=== PATIENT | female | born 1960 | race African-American/Black ===

== ENCOUNTER 2022-12-24 14:51 | Emergency (ER) | payer BC ==
[2022-12-24 15:29] LABS: Hematocrit 37.3 % (36.0-45.0); Lymphocytes % 40.7 % (15.3-44.8); MCV 92.7 fL (80-100); MPV 7.2 fL (7.6-11.3); RBC Red Blood Cell Count 4.03 M/uL (3.86-4.86)
[2022-12-24 15:30] LABS: Protime INR 1.04
[2022-12-24 15:47] LABS: Albumin 3.9 g/dL (3.4-5.0); Bilirubin Direct 0.1 mg/dL (0-0.2); Bilirubin Total 0.5 mg/dL (0.2-1.0); Magnesium 2.3 mg/dL (1.6-2.4); Potassium 3.7 mmol/L (3.5-5.1); Protein, Total 7.3 g/dL (6.4-8.2); Troponin High Sensitivity 10.9 pg/mL (<58.9)
--- OUTSIDE RECORDS SUMMARY | 2022-12-24 15:53 | XMS REPORT | Clinical Summary ---
:1960 Author Organization [facility] Address [address] [place] [address] Care Team Providers Name Role Phone Aidan Bangura APN Primary Care Provider Allergies Active Allergy Reactions Severity Noted Date Comments Atenolol 07/03/2016 Codeine Nausea And Vomiting 07/03/2016 Metoprolol Rash Low 07/03/2016 Nebivolol Hcl 07/03/2016 Penicillin Itching 07/03/2016 Other reaction( s): hives, RASH Medications Medication Sig Dispensed Refills Start Date End Date Status albuterol sulfate 0 04/29/2018 A ctive (PROVENTIL,VENTOLIN) 2.5 mg/0.5 mL nebulizer solution atorvastatin (LIPITOR) 20 mg tablet 0 12/2021 Active budesonide-formoterol (SYMBICORT) 0 2016 Active 160-4.5 mcg/actuation inhaler carvedilol (COREG) 6.25 mg tablet 0 2017 Active cephalexin (KEFLEX) 500 mg capsule 0 05/30 Active montelukast (SINGULAIR) 10 mg tablet 0 12/2016 Active Active Problems Problem Noted Date Asthma 06/01/2022 Gastro-esophageal reflux disease without esophagitis 0 06/01/2022 Seasonal allergic rhinitis 06/01/2022 Essential (primary) hypertension 10/28/2014 Chronic kidney disease 10/28/2002 Encounters Date Type Specialty Care Team Description 12/03/2022 Telephone Breast Undiagnosed Rere Sharma, TACO 08/22/2022 Telephone Breast Undiagnosed Aleena Amezquita RN 06/01/2022 Clinical Support Breast Undiagnosed Aidan Bangura, Prisca Galan NP 06/01/2022 Hospital Encounter Radiology Aidan Bangura Lump i n right breast U, BAG CHECKER 06/01/2022 Hospital Encounter Radiology Aidan Bangura Lump i n right breast U, BAG CHECKER 06/01/2022 Office Visit Breast Undiagnosed Aidan Bangura Intrad uctal papilloma of right breast (Primary Dx); U, BAG CHECKER Unspecified lump in unspecified breast; Gabe, Prisca Other abnormal and inconclusive findings on diagnostic imaging of breast JENA Prescott 06/01/2022 NPR Patient Access Services 06/01/2022 Travel 05/25/2022 Lab Requisition Rodo Alas MD Nart, MD Kelton 05/23/2022 Ancillary Procedure Radiology Aidan Bangura Cance r U, BAG CHECKER 05/23/2022 Ancillary Procedure Radiology Aidan Bangura Cance r U, BAG CHECKER 05/23/2022 Ancillary Procedure Radiology Aidan Bangura Cance r U, BAG CHECKER 05/23/2022 Ancillary Procedure Radiology Aidan Bangura Cance r U, BAG CHECKER 05/17/2022 Orders Only Cancer Prevention Aidan Bangura Lump in right breast U, BAG CHECKER (Primary Dx) after 12/24/2021 Immunizations Name Administration Dates Next Due Moderna SARS-CoV-2 Vaccination 02/07/2021, 01/05/2021 Surgical History Surgery Date Site/Laterality Comments HYSTERECTOMY 10/28/1995 - 10/27/1996 TONSILLECTOMY 10/28/1979 - 10/27/1980 TONSILLECTOMY 10/28/2017 - 10/27/2018 Medical History Medical History Date Comments Essential (primary) hypertension 2014 Chronic kidney disease 2002 Gastro-esophageal reflux disease without esophagitis Asthma Seasonal allergic rhinitis 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 Family History Medical History Relation Name Comments Colon cancer Maternal Uncle Relation Name Status Comments Maternal Uncle Social History Tobacco Use Types Packs/Day Years Used Date Smoking Tobacco: Never Smokeless Tobacco: Never Tobacco Cessation: Counseling Given: Yes Alcohol Use Standard Drinks/Week Comments Yes 0 (1 standard drink = 0.6 oz pure alcoho l) occassionally Sex Assigned at Date Recorded Not on file Job Start Date Occupation Industry Not on file Not on file Not on file Obstetrics History Para Term AB IAB SAB Ectopic Multiple Living Live Births 9 5 4 4 5 Date Outcome GA Total Labor/2nd/3rd Weight Sex Delivery Anes PTL Lisa A 1 A5 Name Clin Labor Para Para Para Para Para SAB SAB SAB SAB Comments Menarche: 16 Parity: 18 OBC: 3-4 years Hormonal Therapy: Premari n, Estradiol pt states on and off for 25 yrs. Last Pap: (OS) remote Abnormal Pap: None Last Josias: (OS) 02/28/2022 Last Colon: (O S) 6 years ago Breast Bx: 1 Last Filed Vital Signs Vital Sign Reading Time Taken Comments Blood Pressure 140/75 06/01/2022 11:13 AM CDT Pulse 83 06/01/2022 11:13 AM CDT Temperature - - Respiratory Rate 16 06/01/2022 11:13 AM CDT Oxygen Saturation - - Inhaled Oxygen Concentration - - Weight 70 kg (154 lb 5.2 oz) 06/01/2022 11:13 AM CDT Height 155 cm (5' 1.02") 06/01/2022 11:13 AM CDT Body Mass Index 29.14 06/01/2022 11:13 AM CDT Plan of Treatment Date Type Specialty Care Team Description 02/06/2023 Appointment Radiology Prisca Bernal, ELECT[employer]IAN [employer]IEF [address] [place], [place] [address] (Wo rk) 02/06/2023 Office Visit Cancer Prevention Emerita Jones PA [address] [place], [place] [address] (Wo rk) Health Maintenance Due Date Last Done Comments COVID-19 Vaccination (3 - Booster for 04/04/2021 02/07/2021 , 01/05/2021 Moderna series) Procedures Procedure Name Priority Date/Time Associated Comments Diagnosis US CHEST Routine 06/01/2022 1:57 PM Lump in right Results for this CDT breast procedure are i n the results section. US BREAST COMPLETE Routine 06/01/2022 1:57 PM Lump in right Re sults for this BILATERAL CDT breast procedure are i n the results section. MAMMO DIGITAL Routine 06/01/2022 12:27 Lump in right Results f or this DIAGNOSTIC BILATERAL W PM CDT breast proce dure are in [facility] the results section. [facility] MAMMO BREAST BIOPSY Routine 03/08/2022 1:55 PM Cancer Results for this CDT procedure are i n the results section. [facility] US BREAST BIOPSY Routine 03/08/2022 1:55 PM Cancer R esults for this CDT procedure are i n the results section. PATHOLOGY OUTSIDE Routine 03/08/2022 Results fo r this INTERPRETATION procedure are in the results section. [facility] MAMMO BILATERAL Routine 02/28/2022 1:54 PM Cancer Re sults for this CDT procedure are i n the results section. [facility] US BREAST Routine 02/28/2022 1:54 PM Cancer Results for this CDT procedure are i n the results section. after 12/24/2021 Results US Chest for Breast Ultrasound (Add-on Only) (06/01/2022 1:57 PM CDT) Anatomical Region Laterality Modality Chest Ultrasound Specimen (Source) Anatomical Collection Method Collection Time Re ceived Time Location / / Volume Laterality 06/01/2022 2:16 PM CDT Impressions 06/01/2022 2:24 PM CDT Multiple similar appearing intraductal m asses throughout both breasts suggestive of underlying papillomatosis. Six-month follow-up ultrasound is recommended to ensure stability. ACR BI-RADS Category: 3. Probably benign . Narrative 06/01/2022 2:24 PM CDT FULL RESULT: Examination: US BREAST COMPLETE BILATERA L, US CHEST 06/01/2022 1:57 PM Clinical History: 62-year-old woman with recent biopsy of a palpable mass in the right breast with final pathology results demonstrating a papilloma. Patient also with bilateral similar appearing masses in both breasts on mammogram. Indication: Breast mass. Abnormal mammog vilma. Comparison: Same day mammogram. Outside ultrasound examinations from 02/28/2022 and 03/08/2022. Technique: Real-time sonographic imaging of both breasts (including all 4 quadrants and retroareolar region) was performed. Imaging was performed of the axilla (levels I, II, and III). Ultrasound imagin g of the chest/mediastinum was performed to evaluate the internal mammary lymph nodes. Images were obtained in multiple scanning planes. Findings: Left breast: Multiple similar appearing intraductal masses are identified throughout the breast with the largest present at the 5 o'clock/periareolar region, 2 cm from the nipple, measuring 0.7 x 0.5 x 0.2 cm. Scattered fibrocystic type bro es are also present. The intraductal masses and fibrocystic type changes correspond to the obscured masses identified mammographically. Left regional shaila basins: No suspiciou s axillary (levels 1-3) or internal mammary lymph nodes are present. No Right breast: Multiple similar appearing intraductal masses are identified throughout the breast with the largest present in the retroareolar region measuring 1 x 0.7 x 0.4 cm. This mass has an associat ed biopsy clip and corresponds to the ou tside performed biopsy demonstrating a papilloma. Scattered fibrocystic type changes are also present. The intraductal masses and fibrocystic type changes corresp ond to the obscured masses identified ma mmographically. Right regional shaila basins: No suspicio us axillary (levels 1-3) or internal mammary lymph nodes are present. Procedure Note Marisela Cuba MD - 06/01/2022 FULL RESULT: Examination: US BREAST COMPLETE BILATERA L, US CHEST 06/01/2022 1:57 PM Clinical History: 62-year-old woman with recent biopsy of a palpable mass in the right breast with final pathology results demonstrating a papilloma. Patient also with bilateral similar appearing masses in both breasts on mammogram. Indication: Breast mass. Abnormal mammog vilma. Comparison: Same day mammogram. Outside ultrasound examinations from 02/28/2022 and 03/08/2022. Technique: Real-time sonographic imaging of both breasts (including all 4 quadrants and retroareolar region) was performed. Imaging was performed of the axilla (levels I, II, and III). Ultrasound imaging of the chest/mediastinum was performed to evalu ate the internal mammary lymph nodes. Images were obtained in multiple scanning planes. Findings: Left breast: Multiple similar appearing intraductal masses are identified throughout the breast with the largest present at the 5 o'clock/periareolar region, 2 cm from the nipple, measuring 0.7 x 0.5 x 0.2 cm. Scattered fibrocystic type bro es are also present. The intraductal masses and fibrocystic type changes correspond to the obscured masses identified mammographically. Left regional shaila basins: No suspiciou s axillary (levels 1-3) or internal mammary lymph nodes are present. No Right breast: Multiple similar appearing intraductal masses are identified throughout the breast with the largest present in the retroareolar region measuring 1 x 0.7 x 0.4 cm. This mass has an associated biopsy clip and corresponds to the outside performed bio psy demonstrating a papilloma. Scattered fibrocystic type changes are also present. The intraductal masses and fibrocystic type changes correspond to the obscured masses identified mammographically. Right regional shaila basins: No suspicio us axillary (levels 1-3) or internal mammary lymph nodes are present. IMPRESSION: Multiple similar appearing intraductal m asses throughout both breasts suggestive of underlying papillomatosis. Six-month follow-up ultrasound is recommended to ensure stability. ACR BI-RADS Category: 3. Probably benign . Aidan Bangura APN IMG US ORDERABLES US Breast Complete Bilateral (06/01/2022 1:57 PM CDT) Anatomical Region Laterality Modality Breast Bilateral Ultrasound Specimen (Source) Anatomical Collection Method Collection Time Re ceived Time Location / / Volume Laterality 06/01/2022 2:16 PM CDT Impressions 06/01/2022 2:24 PM CDT Multiple similar appearing intraductal m asses throughout both breasts suggestive of underlying papillomatosis. Six-month follow-up ultrasound is recommended to ensure stability. ACR BI-RADS Category: 3. Probably benign . Narrative 06/01/2022 2:24 PM CDT FULL RESULT: Examination: US BREAST COMPLETE BILATERA L, US CHEST 06/01/2022 1:57 PM Clinical History: 62-year-old woman with recent biopsy of a palpable mass in the right breast with final pathology results demonstrating a papilloma. Patient also with bilateral similar appearing masses in both breasts on mammogram. Indication: Breast mass. Abnormal mammog vilma. Comparison: Same day mammogram. Outside ultrasound examinations from 02/28/2022 and 03/08/2022. Technique: Real-time sonographic imaging of both breasts (including all 4 quadrants and retroareolar region) was performed. Imaging was performed of the axilla (levels I, II, and III). Ultrasound imagin g of the chest/mediastinum was performed to evaluate the internal mammary lymph nodes. Images were obtained in multiple scanning planes. Findings: Left breast: Multiple similar appearing intraductal masses are identified throughout the breast with the largest present at the 5 o'clock/periareolar region, 2 cm from the nipple, measuring 0.7 x 0.5 x 0.2 cm. Scattered fibrocystic type bro es are also present. The intraductal masses and fibrocystic type changes correspond to the obscured masses identified mammographically. Left regional shaila basins: No suspiciou s axillary (levels 1-3) or internal mammary lymph nodes are present. No Right breast: Multiple similar appearing intraductal masses are identified throughout the breast with the largest present in the retroareolar region measuring 1 x 0.7 x 0.4 cm. This mass has an associat ed biopsy clip and corresponds to the ou tside performed biopsy demonstrating a papilloma. Scattered fibrocystic type changes are also present. The intraductal masses and fibrocystic type changes corresp ond to the obscured masses identified ma mmographically. Right regional shaila basins: No suspicio us axillary (levels 1-3) or internal mammary lymph nodes are present. Procedure Note Marisela Cuba MD - 06/01/2022 FULL RESULT: Examination: US BREAST COMPLETE BILATERA L, US CHEST 06/01/2022 1:57 PM Clinical History: 62-year-old woman with recent biopsy of a palpable mass in the right breast with final pathology results demonstrating a papilloma. Patient also with bilateral similar appearing masses in both breasts on mammogram. Indication: Breast mass. Abnormal mammog vilma. Comparison: Same day mammogram. Outside ultrasound examinations from 02/28/2022 and 03/08/2022. Technique: Real-time sonographic imaging of both breasts (including all 4 quadrants and retroareolar region) was performed. Imaging was performed of the axilla (levels I, II, and III). Ultrasound imaging of the chest/mediastinum was performed to evalu ate the internal mammary lymph nodes. Images were obtained in multiple scanning planes. Findings: Left breast: Multiple similar appearing intraductal masses are identified throughout the breast with the largest present at the 5 o'clock/periareolar region, 2 cm from the nipple, measuring 0.7 x 0.5 x 0.2 cm. Scattered fibrocystic type bro es are also present. The intraductal masses and fibrocystic type changes correspond to the obscured masses identified mammographically. Left regional shaila basins: No suspiciou s axillary (levels 1-3) or internal mammary lymph nodes are present. No Right breast: Multiple similar appearing intraductal masses are identified throughout the breast with the largest present in the retroareolar region measuring 1 x 0.7 x 0.4 cm. This mass has an associated biopsy clip and corresponds to the outside performed bio psy demonstrating a papilloma. Scattered fibrocystic type changes are also present. The intraductal masses and fibrocystic type changes correspond to the obscured masses identified mammographically. Right regional shaila basins: No suspicio us axillary (levels 1-3) or internal mammary lymph nodes are present. IMPRESSION: Multiple similar appearing intraductal m asses throughout both breasts suggestive of underlying papillomatosis. Six-month follow-up ultrasound is recommended to ensure stability. ACR BI-RADS Category: 3. Probably benign . Aidan Bangura APN IMG US ORDERABLES (ABNORMAL) Mammography Digital Diagnostic Bilateral with Jackson (06/01/2022 12:27 PM CDT) Anatomical Region Laterality Modality Breast Bilateral Mammography Specimen (Source) Anatomical Collection Method Collection Time Re ceived Time Location / / Volume Laterality 06/01/2022 2:14 PM CDT Impressions 06/01/2022 2:14 PM CDT 1: Focal asymmetry in the retroareolar region of the right breast is benign. 2: Masses in both breasts require natanael tional imaging evaluation. An ultrasound exam is recommended. BI-RADS Category 0: Incomplete: Needs Additional Imaging Susanna luation Narrative 06/01/2022 2:14 PM CDT CLINICAL INDICATION: Patient is a 62 year old female and is s een for breast lump MAMMO DIGITAL DIAGNOSTIC BILATERAL W ODALYS O Digital Mammogram evaluated with Compute r Aided Detection (CAD). COMPARISON: The present examination has been compare d to a prior imaging study performed at an outside location on 02/28/2022. FINDINGS: There are scattered areas of fibroglandu lar density. 1: There is a focal asymmetry measurin g 0.8 centimeters with associated post biopsy clip in the retroareolar region o f the right breast. Focal asymmetry correlates to the palpable finding in th e right breast. Patient is status post recent outside performed biopsy with apolinar michaud pathology results demonstrating an intraductal papilloma with usual ductal hyperplasia and stromal microcalcifications. 2: There are multiple similar obscured masses in both breasts. Tomosynthesis performed in CC and MLO pr ojections. Procedure Note Marisela Cuba MD - 06/01/2022 CLINICAL INDICATION: Patient is a 62 year old female and is s een for breast lump MAMMO DIGITAL DIAGNOSTIC BILATERAL W ODALYS O Digital Mammogram evaluated with Compute r Aided Detection (CAD). COMPARISON: The present examination has been compare d to a prior imaging study performed at an outside location on 02/28/2022. FINDINGS: There are scattered areas of fibroglandu lar density. 1: There is a focal asymmetry measuring 0.8 centimeters with associated post biopsy clip in the retroareolar region o f the right breast. Focal asymmetry correlates to the palpable finding in th e right breast. Patient is status post recent outside performed biopsy with fin al pathology results demonstrating an intraductal papilloma with usual ductal hyperplasia and stromal microcalcifications. 2: There are multiple similar obscured m asses in both breasts. Tomosynthesis performed in CC and MLO pr ojections. IMPRESSION: 1: Focal asymmetry in the retroareolar r egion of the right breast is benign. 2: Masses in both breasts require additi onal imaging evaluation. An ultrasound exam is recommended. BI-RADS Category 0: Incomplete: Needs Additional Imaging Ssuanna luation Aidan Bangura APN [place] MAMMOGRAPHY ORDERABLES [facility] Mammo Breast Biopsy (03/08/2022 1:55 PM CDT) Specimen (Source) Anatomical Location Collection Method / Collectio n Time Received Time / Laterality Volume Narrative [facility] - 05/23/2022 1:55 PM CDT Study acquired at another institution. For comparison only. No MD Perry originated interpretation requested or a vailable. Aidan Bangura APN [facility] OUTSIDE IMAGE ORDERABLES Performing Organization Address City/State/ZIP Code Phon e Number [facility] US Breast Biopsy (03/08/2022 1:55 PM CDT) Specimen (Source) Anatomical Location Collection Method / Collectio n Time Received Time / Laterality Volume Narrative [facility] - 05/23/2022 1:55 PM CDT Study acquired at another institution. For comparison only. No MD Perry originated interpretation requested or a vailable. Aidan Bangura EDWIGE IMG OUTSIDE IMAGE ORDERABLES Performing Organization Address City/State/ZIP Code Phon e Number [facility] Pathology Outside Interpretation (03/08/2022) Component Value Ref Test Analysis Performed Pathologis t Range Method Time At Signature Materials Accession#, Stained, Block, Unstained Collected Received 05/28/2022 [facility] Received A. [id number], 6 SS, 0 BLOCKS, 0 USS 03/08/2022 05/25/2022 3:08 PM CDT Diagnosis Outside material ([id number]) designated as follows: 05/28/2022 [facility] Electronically 3:08 PM signed by Rea Right breast, 3:00, 1 cm fro m nipple, ultrasound guided core biopsy (1.A, H&E levels 2, 5, 6, and immunostains): CDT MD Reina on 05/28/2022 a t 3:08 Sclerosing intraductal papil kenna with usual ductal hyperplasia and stromal microcalcifications (see comment). PM Comment On submitted outside 05/28/2022 [facility] ABS slides, immunostains 3:08 PM with myoepithelial CDT markers p63 and smooth muscle myosin are present around the intraductal papilloma and in the fibrovascular cores of the papillae. Disclaimer "Some tests reported 05/28/2022 [facility] here may have been 3:08 PM developed and CDT performance characteristics determined by [facility] Medicine. These tests have not been specifically cleared or approved by the U.S. Food and Drug Administration. If applicable, controls were reviewed and showed appropriate reactivity." Specimen (Source) Anatomical Collection Method Collection Time Re ceived Time Location / / Volume Laterality Tissue 03/08/2022 05/25/2022 4:11 PM CDT Kelton Alberto MD LAB PATHOLOGY ORDERABLES Performing Organization Address City/State/ZIP Code Phon e Number [facility] [place] [address] [address] [facility] Mammo (02/28/2022 1:54 PM CDT) Specimen (Source) Anatomical Location Collection Method / Collectio n Time Received Time / Laterality Volume Narrative [facility] - 05/23/2022 1:54 PM CDT Study acquired at another institution. For comparison only. No MD Perry originated interpretation requested or a vailable. Aidan Bangura BAG CHECKER IMG OUTSIDE IMAGE ORDERABLES Performing Organization Address City/State/ZIP Code Phon e Number [facility] US Breast (02/28/2022 1:54 PM CDT) Specimen (Source) Anatomical Location Collection Method / Collectio n Time Received Time / Laterality Volume Narrative [facility] - 05/23/2022 1:55 PM CDT Study acquired at another institution. For comparison only. No MD Perry originated interpretation requested or a vailable. Aidan Bangura BAG CHECKER IMG OUTSIDE IMAGE ORDERABLES Performing Organization Address City/State/ZIP Code Phon e Number [facility] after 12/24/2021 Insurance Payer Benefit Plan / Subscriber ID Effective Dates Phone Addre ss Type Group [employer] POS [id number] 2020-Present [id number] [place] [address] Care Teams Water Analyst Relationship Specialty Start Date End Date Aidan Bangura APN PCP - General Cancer Prevention 05/17/[address] [place] [id number]
--- OUTSIDE RECORDS SUMMARY | 2022-12-24 15:54 | XMS REPORT | Continuity of Care Document ---
:1960 Author Organization [facility] t Address [address] [place] [address] [place] [id number] Care Team Providers Name Role Phone [phone] Primary Care Physician Unavailable SYSTEM, PROVIDER NOT IN Attending Clinician Unavailable VLADIMIR BURT/ANURADHA Attending Clinician Unavailable ALLYSSA YOUNG Attending Clinician Unavailable DAMARIS PARHAM Attending Clinician Unavailable YEYO BREWSTER Attending Clinician Unavailable Rree Sharma RN Attending Clinician Unavailable ANITA ROD Attending Clinician Unavailable Alirio ESPAÑA, Aleena Attending Clinician SURAJ ABDULLAHI Attending Clinician Unavailable Suraj Abdullahi APN Attending Clinician Gabe BELLA, Prisca Prescott Attending Clinician Rodo Alas MD Attending Clinician Kelton Alberto MD Attending Clinician JOHNATHAN RAMIREZ APN Attending Clinician Unavailable HENRRY PÉREZ Attending Clinician Unavailable Pa Gallegos Attending Clinician Unavailable VLADIMIR BURT/ANURADHA Admitting Clinician Unavailable ALLYSSA YOUNG Admitting Clinician Unavailable DAMARIS PARHAM Admitting Clinician Unavailable YEYO BREWSTER Admitting Clinician Unavailable EHDAIE, SASSAN DIA Admitting Clinician Unavailable Payers Payer Name Policy Type Policy Number Effective Date Expiration Date S claudia 8 B [id number] 30 C [id number] 4 C [id number] HMO/QPOS/SELECT - [id number] [employer]ET[employer] PPO/EPO - BCBS [id number] CHOICE/CHOICE [id number] PLUS/OPTIONS [facility] Problems Condition Condition Condition Status Onset Resolution Last Treating Co mments Source Name Details Category Date Date Treatment Clinician Date Asthma Asthma Disease Active Univers 8-05 ity of 00:00: [place] 00 MD Beatrice patton [facility] Gastro-eso Gastro-eso Disease Active U nivers phageal phageal 06-01 ity of reflux reflux 00:00: [place] disease disease 00 without without [facility] esophagiti esophagiti n [facility] Seasonal Seasonal Disease Active Unive rs allergic allergic 06-01 ity of rhinitis rhinitis 00:00: [place] 00 MD Beatrice patton [facility] Essential Essential Disease Active Uni vers (primary) (primary) 10-28 [place] of hypertens[place] Beatrice patton [facility] Atopic Atopic Disease Active [facility] dermatitis dermatitis 9-17 Co llege 00:00: of 00 Medicin e Spongiotic Spongiotic Disease Active [facility] dermatitis dermatitis 8-15 Co llege 00:00: of 00 Medicin e Chronic Chronic Disease Active Univers kidney kidney 10-28 ity of disease disease 00:00: [place] 00 MD Beatrice patton [facility] Problem Condition [facility] Allergies, Adverse Reactions, Alerts Allergy Allergy Status Severity Reaction(s) Onset Inactive Treating Comm ents Source Name Type Date Date Clinician Ciprofana maría Propensi Active Other (See Makes her [facility] xacin ty to Comments) 11-22 legs hurt [place] adverse 00:00: of reaction 00 Medicin s to e drug PENICILL Drug Active U hives 2018-10 [facility] [place] Allergy 12-07 Hospita 07:40: l 31 ([place]) ATENOLOL DRUG Active INGREDI 07-03 Anderso 00:00: n 00 CODEINE DRUG Active NandV MD INGREDI 07-03 Anderso 00:00: n 00 NEBIVOLO DRUG Active 2015-0 MD L HCL INGREDI 07-03 Anderso 00:00: n 00 PENICILL DRUG Active Itching 2015-0 MD IN INGREDI 07-03 Anderso 00:00: n 00 METOPROL DRUG Active Low Rash 2016-0 MD OL INGREDI 07-03 Anderso 00:00: n 00 ATENOLOL DRUG Active 2015-0 MD INGREDI 07-03 Anderso 00:00: n 00 CODEINE DRUG Active NandV 2015-0 MD INGREDI 07-03 Anderso 00:00: n 00 NEBIVOLO DRUG Active 2015-0 MD L HCL INGREDI 07-03 Anderso 00:00: n 00 PENICILL DRUG Active Itching 2015-0 MD IN INGREDI 07-03 Ando 00:00: n 00 METOPROL DRUG Active Low Rash 2015-0 MD OL INGREDI 07-03 Ando 00:00: n 00 nebivolo Propensi Active Unknown PANTERA TU l HCl ty to 07-03 S adverse 00:00: Health reaction 00 s Penicill Propensi Active Unknown PANTERA TU in ty to 07-03 S adverse 00:00: Health reaction 00 s Atenolol Allergy Active Unknown MICHAEL U to 07-03 S substanc 00:00: Health e 00 Metoprol Allergy Active Unknown 0 MICHAEL U ol to 07-03 S substanc 00:00: Health e 00 Atenolol Drug Active 2015-0 Univers Allergy 07-03 ity of 00:00: [place] 00 MD [facility] Codeine Propensi Active Nausea And 2015- Uni vers ty to Vomiting 07-03 ity of adverse 00:00: [place] reaction 00 MD [facility] Metoprol Drug Active Rash Univers ol Allergy 07-03 ity of 00:00: [place] 00 MD [facility] Nebivolo Propensi Active Univer s l Hcl ty to 07-03 ity of adverse 00:00: [place] reaction 00 MD [facility] Penicill Drug Active Itching Other Univers in Allergy 07-03 reaction( ity of 00:00: s): [place] 00 MD mauricio RASH [facility] ATENOLOL DRUG Active 0 MD INGREDI 07-03 Anderso 00:00: n 00 CODEINE DRUG Active NandV 2016-0 MD INGREDI 07-03 Anderso 00:00: n 00 NEBIVOLO DRUG Active 2016-0 MD L HCL INGREDI 07-03 Anderso 00:00: n 00 PENICILL DRUG Active Itching 2016-0 MD IN INGREDI 07-03 Anderso 00:00: n 00 METOPROL DRUG Active Low Rash 2016-0 MD OL INGREDI 07-03 Anderso 00:00: n 00 ATENOLOL DRUG Active 2016-0 MD INGREDI 07-03 Anderso 00:00: n 00 CODEINE DRUG Active NandV 2016-0 MD INGREDI 07-03 Anderso 00:00: n 00 NEBIVOLO DRUG Active 2016-0 MD L HCL INGREDI 07-03 Ando 00:00: n 00 PENICILL DRUG Active Itching 2015-0 MD IN INGREDI 07-03 Anderso 00:00: n 00 METOPROL DRUG Active Low Rash 2016-0 MD OL INGREDI 07-03 Anderso 00:00: n 00 ATENOLOL DRUG Active 2016-0 MD INGREDI 07-03 Anderso 00:00: n 00 CODEINE DRUG Active NandV 2016-0 MD INGREDI 07-03 Anderso 00:00: n 00 NEBIVOLO DRUG Active 2016-0 MD L HCL INGREDI 07-03 Ando 00:00: n 00 PENICILL DRUG Active Itching 2016-0 MD IN INGREDI 07-03 Anderso 00:00: n 00 METOPROL DRUG Active Low Rash 2016-0 MD OL INGREDI 07-03 Anderso 00:00: n 00 ATENOLOL DRUG Active 2016-0 MD INGREDI 07-03 Anderso 00:00: n 00 CODEINE DRUG Active NandV 2016-0 MD INGREDI 07-03 Anderso 00:00: n 00 NEBIVOLO DRUG Active 2016-0 MD L HCL INGREDI 07-03 Anderso 00:00: n 00 PENICILL DRUG Active Itching 2016-0 MD IN INGREDI 07-03 Anderso 00:00: n 00 METOPROL DRUG Active Low Rash 2016-0 MD OL INGREDI 07-03 Anderso 00:00: n 00 ATENOLOL DRUG Active 2016-0 MD INGREDI 07-03 Anderso 00:00: n 00 CODEINE DRUG Active NandV 2016-0 MD INGREDI 07-03 Anderso 00:00: n 00 NEBIVOLO DRUG Active 2016-0 MD L HCL INGREDI 07-03 Anderso 00:00: n 00 PENICILL DRUG Active Itching 2016-0 MD IN INGREDI 07-03 Anderso 00:00: n 00 METOPROL DRUG Active Low Rash 2016-0 MD OL INGREDI 07-03 Anderso 00:00: n 00 ATENOLOL DRUG Active 2016-0 MD INGREDI 07-03 Anderso 00:00: n 00 CODEINE DRUG Active NandV 2016-0 MD INGREDI 07-03 Anderso 00:00: n 00 NEBIVOLO DRUG Active 2016-0 MD L HCL INGREDI 07-03 Ando 00:00: n 00 PENICILL DRUG Active Itching 2016-0 MD IN INGREDI 07-03 Anderso 00:00: n 00 METOPROL DRUG Active Low Rash 2016-0 MD OL INGREDI 07-03 Ando 00:00: n 00 ATENOLOL DRUG Active 2016-0 MD INGREDI 07-03 Anderso 00:00: n 00 CODEINE DRUG Active NandV 2016-0 MD INGREDI 07-03 Anderso 00:00: n 00 NEBIVOLO DRUG Active 2016-0 MD L HCL INGREDI 07-03 Ando 00:00: n 00 PENICILL DRUG Active Itching 2016-0 MD IN INGREDI 07-03 Anderso 00:00: n 00 METOPROL DRUG Active Low Rash 2016-0 MD OL INGREDI 07-03 Anderso 00:00: n 00 ATENOLOL DRUG Active 2016-0 MD INGREDI 07-03 Anderso 00:00: n 00 CODEINE DRUG Active NandV 2016-0 MD INGREDI 07-03 Anderso 00:00: n 00 NEBIVOLO DRUG Active 2016-0 MD L HCL INGREDI 07-03 Anderso 00:00: n 00 PENICILL DRUG Active Itching 2016-0 MD IN INGREDI 07-03 Anderso 00:00: n 00 METOPROL DRUG Active Low Rash 2016-0 MD OL INGREDI 07-03 Anderso 00:00: n 00 ATENOLOL DRUG Active 2016-0 MD INGREDI 07-03 Anderso 00:00: n 00 CODEINE DRUG Active NandV 2016-0 MD INGREDI 07-03 Anderso 00:00: n 00 NEBIVOLO DRUG Active MD L HCL INGREDI 07-03 Anderso 00:00: n 00 PENICILL DRUG Active Itching MD IN INGREDI 07-03 Anderso 00:00: n 00 METOPROL DRUG Active Low Rash MD OL INGREDI 07-03 Anderso 00:00: n 00 ATENOLOL DRUG Active MD INGREDI 07-03 Anderso 00:00: n 00 CODEINE DRUG Active NandV MD INGREDI 07-03 Anderso 00:00: n 00 NEBIVOLO DRUG Active MD L HCL INGREDI 07-03 Anderso 00:00: n 00 PENICILL DRUG Active Itching MD IN INGREDI 07-03 Anderso 00:00: n 00 METOPROL DRUG Active Low Rash MD OL INGREDI 07-03 Anderso 00:00: n 00 Penicill Propensi Active [facility] ins ty to 8-15 College adverse 00:00: of reaction 00 Medicin s to e drug Family History Family Member Diagnosis Comments Start Date Stop Date Source Maternal uncle Colon cancer [facility] [place] MD [facility] Social History Social Habit Start Date Stop Date Quantity Comments Source Alcohol intake 2022-06-01 2022-06-01 Current drinker of Un iversity of 00:00:00 00:00:00 alcohol (finding) [facility] Alcohol Comment 2022-06-01 2022-06-01 occassionally Univer sity of 00:00:00 00:00:00 [facility] Tobacco use and 2017-03-13 2017-03-13 Smokeless tobacco [facility] College of exposure 00:00:00 00:00:00 non-user Medicine Sex [birth year] Universit y of 00:00:00 00:00:00 Raysa foster [facility] Smoking Status Start Date Stop Date Source Never smoked tobacco [facility] Pushpa ege of Medicine Medications Ordered Filled Start Stop Current Ordering Indication Dosage Frequency Signature Comments Components Source Medication Medication Date Date Medication? Clinician (SIG) Name Name clobetasol Yes [id number] Apply to [facility] (TEMOVATE) 1- affected Colle ge 0.05 % 00:00: area twice of ointment 00 a day as Medicin needed for e up to 6 weeks. Avoid use on face, axilla, groin. atorvastati Yes Teena galarza n (LIPITOR) 8 ity of 20 mg 00:00: [place] tablet 00 MD Barron [facility] cephalexin Yes Univers (KEFLEX) 05-30 ity of 500 mg 00:00: [place] [facility] Meclizine 2018-10 No 25mg Three CHRISTU Hcl 1-22 Times A S (Antivert) 16:11: Day Health 25 Mg TAB 00 Meclizine 2018-10 No 25mg Three CHRISTU Hcl 1-22 Times A S (Antivert) 16:11: Day Health 25 Mg TAB 00 predniSONE 2017-10 Yes [id number] Take 4 [facility] (DELTASONE) 1-07 tabs x 5 Pushpa ege 10 MG 00:00: days, 3 of tablet 00 tabs x 5 Medicin days, 2 e tabs x 5 days, then 1 tab x 5 days QAM PO. tacrolimus Yes [id number] Apply [facility] (PROTOPIC) 7-30 2x/day; Colleg e 0.1 % 00:00: use sun of ointment 00 protection Medic in e albuterol Yes Univers sulfate 7 ity of (PROVENTIL, 00:00: [place] VENTOLIN) 00 2.5 mg/0.5 Anderso mL n nebulizer [facility] carvedilol Yes Univers (COREG) 3 ity of 6.25 mg 00:00: [place] tablet 00 MD Beatrice patton [facility] budesonide- Yes Teena galarza formoterol 04-29 ity of (SYMBICORT) 00:00: [place] 160-4.5 00 MD matthews/abel Barron on inhaler [facility] Desoximetas 2022- No [id number] 1{appli Apply 1 [facility] one 0.25 % 5-17 11-22 cation} applicatio College OINT 00:00: 00:00 n of 00 :00 topically Medicin two times e daily. montelukast Yes Univer s (SINGULAIR) 5-03 ity of 10 mg 00:00: [place] tablet 00 MD [facility] predniSONE Yes 3 tabs by Javier guajardo (DELTASONE) 07-14 mouth for Col lege 20 MG 00:00: 5 days/ of tablet 00 then 2 Medicin tabs by e mouth for 5 days/ then 1 tab by mouth for 5 days. doxepin Yes 25mg Take 1 Cap [facility] or (SINEQUAN) 07-14 by mouth Colle ge 25 MG 00:00: nightly. of capsule 00 Medicin e Halobetasol 2022- No [facility] 07-14 affected College &Lactic Ac 00:00: 00:00 area twice of Cr 00 :00 a day Medicin (ULTRAVATE e X, OINTMENT,) 0.05 & 10 % KIT triamcinolo 2022- No Apply to [place] 07-14 affected College (KENALOG) 00:00: 00:00 area 2 of 0.1 % 00 :00 times Medicin ointment daily. e Avoid face/groin /axillae Halobetasol 2011-10- No [id number] Apply to [facility] 12-24 affected College &Lactic Ac 00:00: 00:00 areas of Cr 00 :00 twice Medicin (ULTRAVATE daily e X, OINTMENT,) 0.05 & 10 % KIT cycloSPORIN Yes 100mg Take 1 Cap [facility] E 8-15 by mouth 3 College (SANDIMMUNE 00:00: times of ) 100 MG 00 daily. Medicin capsule e Aspirin No 81mg Daily for CHRISTU (Aspirin Supplement S Chewable) Health 81 Mg CHEW Carvedilol No 3.125mg Daily PANTERA TU (Coreg) S 3.125 Mg Health TAB Clonazepam No .5mg Daily for CHRI JS (Klonopin) Anxiety/Ag S 0.5 Mg TAB itation Health Dexlansopra No 60mg Daily as CHRI JS zole needed for S (Dexilant) Reflux Health 60 Mg CPDR Hctz/Lisino No 1 Daily for CHR ISTU pril Hypertensi S (Zestoretic on Health 20-12.5) 1 Tab TABLET Metoclopram No 5mg Twice CHRISTU ford Hcl Daily S (Reglan) 5 Before Health Mg TAB Meals Aspirin No 81mg Daily for CHRISTU (Aspirin Supplement S Chewable) Health 81 Mg CHEW Carvedilol No 3.125mg Daily PANTERA TU (Coreg) S 3.125 Mg Health TAB Clonazepam No .5mg Daily for CHRI JS (Klonopin) Anxiety/Ag S 0.5 Mg TAB itation Health Dexlansopra No 60mg Daily as CHRI JS zole needed for S (Dexilant) Reflux Health 60 Mg CPDR Hctz/Lisino No 1 Daily for CHR ISTU pril Hypertensi S (Zestoretic on Health 20-12.5) 1 Tab TABLET Metoclopram No 5mg Twice CHRISTU ford Hcl Daily S (Reglan) 5 Before Health Mg TAB Meals Immunizations Ordered Filled Immunization Date Status Comments [facility] e Immunization Name Name Angy SARS-CoV-2 2021-02-07 Completed Univer sity of Vaccination 00:00:00 [facility] Moderna SARS-CoV-2 2021-01-05 Completed Univer sity of Vaccination 00:00:00 Raysa [facility] Vital Signs Vital Name Observation Time Observation Value Comments Source Systolic blood 2022-11-22 15:52:00 151 mm[Hg] [facility] pressure Medicine Diastolic blood 2022-11-22 15:52:00 78 mm[Hg] [facility] Medicine Heart rate 2022-11-22 15:52:00 92 /min [facility] [place] Body height 2022-11-22 15:52:00 149.9 cm [facility] [place] Body weight 2022-11-22 15:52:00 70.308 kg [facility] [place] BMI 2022-11-22 15:52:00 31.31 kg/m2 [facility] [place] Systolic blood 2022-06-01 16:13:44 140 mm[Hg] Univer sity of pressure [facility] Diastolic blood 2022-06-01 16:13:44 75 mm[Hg] Unive rsity of pressure [facility] Heart rate 2022-06-01 16:13:44 83 /min [facility] Respiratory rate 2022-06-01 16:13:44 16 /min [facility] MD [facility] Body height 2022-06-01 16:13:44 155 cm Universi ty [facility] MD [facility] Body weight 2022-06-01 16:13:44 70 kg Universi ty [facility] MD [facility] BMI 2022-06-01 16:13:44 29.14 kg/m2 Universi ty [facility] MD [facility] Heart Rate 2019-09-18 15:58:00 74 /min [facility] Respiratory rate 2019-09-18 15:58:00 20 /min [employer] [facility] Body Temperature 2019-09-18 12:34:00 97.8 [degF] [employer] [facility] Weight 2019-09-18 12:22:00 142.31 [lb_av] [facility] BMI (Body Mass 2019-09-18 12:22:00 28.7 kg/m2 [facility] Index) Procedures Procedure Date / Time Performing Clinician Source Performed US BREAST COMPLETE 2022-06-01 18:57:02 Suraj Abdullahi [facility] BILATERAL [facility] er Center US CHEST 2022-06-01 18:57:02 Suraj Abdullahi [facility] er [place] MAMMO DIGITAL DIAGNOSTIC 2022-06-01 17:27:00 [facility] OSI US BREAST BIOPSY 2022-03-08 18:55:[address] [facility] OSI MAMMO BREAST BIOPSY 2022-03-08 18:55:00 [facility] PATHOLOGY OUTSIDE 2022-03-08 00:00:00 Kelton Alberto [facility] INTERPRETATION [facility] er Center OSI US BREAST 2022-02-28 18:54:00 Suraj Abdullahi [facility] er Center OSI MAMMO BILATERAL 2022-02-28 18:54:00 Suraj Abdullahi [facility] [place] er Center Low level established 2020-10-13 00:00:00 [facility] patient office visit ECG (electrocardiogram) 2019-09-18 00:00:00 [facility] X-ray of chest, single 2019-09-18 00:00:00 [facility] Plan of Care Planned Activity Planned Date Details Comments Source Future Scheduled 2022-12-14 COVID-19 Vaccination (3 University of Test 10:18:43 - Booster for Moderna [place] MD series) [code = [place] jonnie COVID-19 Vaccination (3 Cent er - Booster for Moderna series)] Future Scheduled 2022-11-22 Screening for malignant [facility] Test 09:54:45 neoplasm of colon of Medicin e (procedure) [code = 115821735] Future Scheduled 2022-11-22 Screening for malignant [facility] Test 09:54:45 neoplasm of breast of Medici ne (procedure) [code = 127933299] Future Scheduled 2022-11-22 TETANUS SHOT (ADULT) [facility] College Test 09:54:45 [code = TETANUS SHOT of Medi cine (ADULT)] Future Scheduled 2022-11-22 Human immunodeficiency B [facility] Test 09:54:45 virus screening of Medicine (procedure) [code = 880411057] Future Scheduled 2022-11-22 Hepatitis C screening [facility] Test 09:54:45 (procedure) [code = of Medic ine 004257716] Future Scheduled 2022-11-22 Screening for malignant [facility] Test 09:54:45 neoplasm of cervix of Medici ne (procedure) [code = 449779718] Future Scheduled 2022-11-22 ZOSTER VACCINE (1 of 2) [facility] Test 09:54:45 [code = ZOSTER VACCINE of Me dicine (1 of 2)] Future Scheduled 2022-11-22 COVID-19 Vaccine (3 - [facility] Test 09:54:45 Booster for Moderna of Medic ine series) [code = COVID-19 Vaccine (3 - Booster for Moderna series)] Future Scheduled 2022-11-22 FLU VACCINE > 6 MONTHS Postponed from [facility] Test 09:54:45 [code = FLU VACCINE > 6 05/28/2022 of M edicine MONTHS] (Postpone Reason: Patient declined today) Encounters Start End Encounter Admission Attending Care Care Encounter Source Date/Time Date/Time Type Type Clinicians Facility Department ID 2022-05-04 Outpatient SYSTEM, [facility] [id number] 14:14:46 PROVIDER Tylorrocky patton 2022-01-31 Outpatient 3 CARMEL BRITTA OPO [id number] - [place] 10:44:19 CRYSTAL-ORG [id number] Ho spita /[place] ([place]) 2022-01-25 Outpatient 3 CARMEL [facility] OPO [id number] - [place] 11:15:05 CRYSTAL-ORG [id number] Ho spita /[place] ([place]) 2021-11-02 Outpatient 3 HANNAH [facility] OPO [id number] - [place] 13:26:52 ALLYSSA [id number] Hospit a l ([place]) 2021-11-02 Outpatient 3 HANNAH [facility] OPO [id number] - [place] 13:26:00 ALLYSSA [id number] Hospit a l ([place]) 2021-11-02 Outpatient 3 PRASAD [facility] OPO [id number] 5- [place] 11:43:35 DAMARIS [id number] Hospit a l ([place]) 2021-11-02 Outpatient 3 PRASAD [facility] OPO [id number] 5- [place] 10:43:48 DAMARIS [id number] Hospit a l ([place]) 2021-11-02 Outpatient 3 PRASAD [facility] [place] [id number] 5- [place] 10:07:53 DAMARIS [id number] Hospit a l ([place]) 2021-11-02 Outpatient 3 NARCISA [facility] OP [id number]- [place] 08:34:36 [facility] [id number] ([place]) 2021-11-01 Outpatient 3 PRASAD [facility] OPO [id number] 5- [place] 10:48:51 DAMARIS [id number] Hospit a l ([place]) 2021-11-01 Outpatient 3 PRASAD [facility] OPO [id number] 5- [place] 10:45:44 DAMARIS [id number] Hospit a l ([place]) 2021-08-19 Outpatient SERGIO HILL [id number] [facility] 06:10:50 [id number] [facility] 2021-08-19 Outpatient [facility] [id number] [facility] 05:50:56 S [facility] 2021-08-19 Outpatient [facility] [id number] [facility] 05:40:27 S Health 2022-12-03 2022-12-03 Telephone Edith, 1.2.840.1 [id number] Univers 00:00:00 00:00:00 Rere [id number] ity of 3.412.2.7 [place] .3.900541 .8 [facility] [place] 2022-11-22 2022-11-22 Office GERARD ROD [id number] [facility] 09:45:53 14:54:45 Visit ANITA AMBULATOR 350.1.13.21 College Y 0.2.7.2.686 of [id number] Medi elle 300 e 2022-08-22 2022-08-22 Telephone Alirio 1.2.840.1 [id number] Univers 00:00:00 00:00:00 Aleena 67232.1.1 ity of 3.412.2.7 [place] .3.069155 .8 [facility] 2022-07-24 2022-07-24 Outpatient SYNAGOGUE 2.16.840.1. [id number] 18:59:00 18:59:00 Encounter GUY [id number]. [facility] [id number] 2022-07-24 2022-07-24 Outpatient 3 IQRA BURT OPDagmar [id number] [place] 13:59:00 13:59:00 ABNER-SHERIE zavala /ANURADHA l (Jonnathan nt) 2022-06-01 2022-06-01 Outpatient CLEMENTE ABDULLAHI [facility] MDA [id number] 12:28:04 23:59:00 SURAJ patton 2022-06-01 2022-06-01 Hospital Willem 1.2.840.1 [id number] [facility] 12:28:04 23:59:00 Encounter Suraj Singh [id number] ity of 3.412.2.7 [place] .3.976431 .8 Andliv n [facility] [place] 2022-06-01 2022-06-01 Clinical Suraj Abdullahi Francisco 1.2.840.1 [id number] [facility] 15:00:00 16:02:53 Support Prisca Bernal 77825.1.1 ity of 3.412.2.7 [place] .3.501285 .8 [facility] 2022-06-01 2022-06-01 Outpatient CLEMENTE ABDULLAHI [facility] MDA [id number] 14:16:02 16:02:53 SURAJ Dhilloner so n 2022-06-01 2022-06-01 [facility].2.840.1 [id number] [facility] 11:53:40 12:27:00 Encounter Suraj Francisco [id number] ity of 3.412.2.7 [place] .3.493611 .8 [facility] [place] 2022-06-01 2022-06-01 Outpatient CLEMENTE ABDULLAHI [facility] MDA [id number] [place] 11:53:40 12:27:00 SURAJ Dhilloner so pooja 2022-06-01 2022-06-01 [facility] Suraj Abdullahi Francisco 1.2.840.1 [id number] [facility] 11:20:00 11:59:56 Visit Prisca Bernal [id number] ity of 3.412.2.7 [place] .3.068888 .8 [facility] 2022-06-01 2022-06-01 Outpatient CLEMNETE ABDULLAHI [facility] MDA [id number] MD 11:01:26 11:59:56 SURAJ Dre so n 2022-06-01 2022-06-01 Outpatient [facility] MDA [id number] 10:42:22 11:00:04 Tylor o n 2022-06-01 2022-06-01 [facility] 1.2.840.1 [id number] Univers 10:15:00 11:00:04 09924.1.1 ity of 3.412.2.7 [place] .3.855165 MD [place] [facility] 2022-06-01 2022-06-01 Travel 1.2.840.1 [id number] [id number] Univers 00:00:00 00:00:00 [id number] 350.1.13.41 ity of 3.412.2.7 2.[place].7.3.698 [place] .3.360026 084.8 MD [place]8 [facility] 2022-05-25 2022-05-25 Lab Rodo Alas 1.2.840.1 [id number] Univers 00:00:00 00:00:00 Kelton Ervin 13150.1.1 ity of n 3.412.2.7 [place] .3.615136 MD [place] [facility] 2022-05-23 2022-05-23 Ancillary Miles, 1.2.840.1 [id number] Univers 20:15:00 20:20:00 [place] U 22328.1.1 ity of 3.412.2.7 [place] .3.943028 MD [place] [facility] 2022-05-23 2022-05-23 Ancillary Miles, 1.2.840.1 [id number] Univers 20:10:00 20:15:00 Procedure Nakeshia U 03010.1.1 ity of 3.412.2.7 [place] .3.839566 MD [place]8 [facility] 2022-05-23 2022-05-23 Ancillary Miles, 1.2.840.1 [id number] Univers 20:05:00 20:10:00 Procedure Nakeshia U 92928.1.1 ity of 3.412.2.7 [place] .3.409004 MD [place] [facility] 2022-05-23 2022-05-23 Ancillary Miles, 1.2.840.1 [id number] Univers 20:00:00 20:05:00 Procedure Nakeshia U 20364.1.1 ity of 3.412.2.7 [place] .3.798481 .8 [facility] 2022-05-23 2022-05-23 Outpatient CLEMENTE ABDULLAHI, MDA MDA [id number] 012 13:51:46 13:51:46 SURAJ Erickson so n 2022-05-23 2022-05-23 Outpatient CLEMENTE ABDULLAHI MDA MDA [id number] 000 13:51:42 13:51:42 MONCHOSAMI Dhilloner so n 2022-05-23 2022-05-23 Outpatient CLEMENTE ABDULLAHI MDA MDA [id number] 13:51:38 13:51:38 SURAJ Dhilloner so n 2022-05-23 2022-05-23 Outpatient CLEMENTE ABDULLAHI MDA MDA [id number] 13:51:35 13:51:35 SURAJ Erickson so n 2022-05-17 2022-05-17 Orders Willem, 1.2.840.1 [id number] Univers 00:00:00 00:00:00 Only Suraj U 74575.1.1 i ty of 3.412.2.7 [place] .3.103017 .8 [facility] 2022-05-04 2022-05-04 Outpatient SYNAGOGUE 2.16.840.1. 483 [id number] 01:28:00 01:28:00 Encounter GUY [id number]. [facility] [id number] 2022-05-03 2022-05-03 Outpatient 2 CARMEL BRITTA REF [id number] 115- [facility]ism 20:28:00 20:28:00 [place] [id number] H ospita /[place] ([facility]) 2022-02-01 2022-02-01 Outpatient SYNAGOGUE 2.16.840.1. 477 [id number] SYNAGOGUE 18:15:00 18:15:00 Encounter GUY [id number]. [facility] [id number] T HOSPITA L 2022-02-01 2022-02-01 Outpatient 3 IQRA BURT OPO [id number] 115- [place]ism 13:15:00 13:15:00 [place] [id number] H ospita /[place] ([facility]) 2022-01-15 2022-01-25 Outpatient SYNAGOGUE 2.16.840.1. 477 [id number] SY[place]GO[place]UE 20:20:00 23:00:00 Encounter MCCLURE [id number]. [facility] [id number] T HOSPITA L 2022-01-15 2022-01-25 Outpatient 3 IQRA BURT O [id number] 115- [place] 15:20:00 18:00:00 [facility] [id number] H ospita /[place] ([facility]) 2021-09-19 2021-09-19 Outpatient CLEMENTE RAMIREZ [place] AE0 [id number] [facility] 11:10:00 11:10:00 [place] 50 [facility] 2021-09-08 2021-09-08 Outpatient CLEMENTE RAMIREZ [place] AE0 [id number] [facility] 12:52:00 12:52:00 [place] 46 [facility] 2021-08-21 2021-08-21 Outpatient CLEMENTE RAMIREZ [place] AE0 [id number] [facility] 11:17:00 11:17:00 [place] 34 [facility] 2021-07-26 2021-07-26 Outpatient 3 PRASAD JOSE MIGUEL OPO [id number] 5115- [place]ism 11:21:00 11:21:00 DAMAR[facility] [id number] Hospi ta l ([facility]) 2021-05-11 2021-05-11 Outpatient 3 PRASAD JOSE MIGUEL OPO [id number] 5115- [place]ism 11:19:00 11:19:00 DAMARIS [id number] Hospi ta l ([facility]) 2020-10-13 2020-10-27 Discharged OLIVE HILL AE00 [id number] [facility] 09:29:00 23:59:00 [facility] 2020-10-13 2020-10-13 Outpatient SERGIO PÉREZ [id number] [facility] 09:36:00 09:36:[address] 2020-09-26 2020-09-26 Outpatient 3 PRASAD BRITTA OPO [id number] 5115- [place] 10:51:00 10:51:00 [facility] [id number] [facility] 2020-08-18 2020-08-18 Outpatient 3 IQRA PARHAM [facility] [id number] 5115- [place]ism 15:22:00 15:22:00 [facility] [id number] [facility] 2020-05-18 2020-05-18 Outpatient 3 IQAR BREWSTER OPE [id number] 15- [place] 09:17:00 09:17:00 [facility] [id number] [facility] 2020-04-28 2020-04-28 Outpatient 3 IQRA BREWSTER OPE [id number] 15- [place] 15:54:00 15:54:00 [facility] [id number] [facility]pi [facility] ([facility] 2019-09-18 2019-09-18 Departed MICHAELJANETH HILL [id number] [facility]ST 13:03:00 16:52:[address] 2017-04-09 2017-04-09 Outpatient El, SETENT SETENT [id number] [facility] 14:10:00 14:10:00 [facility] 2017-03-20 2017-03-20 Outpatient El, SETENT SETENT [id number] [facility] 11:01:00 11:01:00 [facility]ose [facility] Results Test Description Test Time Test Comments Results Result Comments Source MRI BRAIN W 2022-07-24 21:33:00 [facility] : 1960 Sex: F *[address] [address]IHJZCYVTMN IMAGING REPORTPatient Name: Nadia LEWIS of Service: 13-20-3490Xjv: 62 Sex: F Order #: [id number] Room: OPEDOB: 1960 X-Ray Number: [id number] Record Number: [id number] Hospital Number: [id number] Physician: VLADIMIR BURT/Dmitry ering Physician: VLADIMIR BURT/ANABELLE BRAIN W 07/24/2022 4:19 PMHistory: new daily persistent headacheComparisons: None Available.10 mL MultiHance were administered per protocol.FINDINGS:Di ffusion-weighted imaging demonstrates no evidence for acute infarct.Intracranial ly, there is no mass effect or midline shift.There is no extra-axial fluid collection, intracranial hemorrhage orhydrocephalus.Cran iovertebral junction is normal without tonsillar herniation or Chiari Imalformation.Esqueda-w rodolfo junction is preserved.The visualized paranasal sinuses demonstrate no air-fluid levels. Themastoid air cells appear clear.There are no masses detected.Enhancement pattern is physiologic.IMPRESSI ON:Normal MRI of the brain with and without contrast.Electronica lly Signed By: Pj Brewer M.D., 07/24/2022 9:31 PMLegally authenticated by GURMEET WHITTINGTON 2022-07-24 21:31:05 I-STAT CREATININE 2022-07-24 15:10:00 Test Item Value Reference Range Interpretation Comme nts ISTCREA (test code = ISTCREA) 0.9 MG/DL 0.7-1.5 Mammography Digital Diagnostic Bilateral with Nozs3064-03-21 19:14:24 Test Item Value Reference Range Interpretation Comments Radiology Study observation (narrative) (test code = 66026-4) IMP (test code = IMP) 1: Focal asymmetry in the retroareolar region of the right breast is benign. 2: Masses in both breasts require additional imaging evaluation. An ultrasoundexam is recommended. BI-RADS Category 0:Incomplete: Needs Additional Imaging Evaluation PXN (test code = PXN) Marisela Cuba MD - 06/01/2022 CLINICAL INDICATION:Patient is a 62 year old female and is seen for breast lump MAMMO DIGITAL DIAGNOSTIC BILATERAL W TOMODigital Mammogram evaluated with Computer Aided Detection (CAD). COMPARISON:The present examination has been compared to a prior imaging study performed atan outside location on 02/28/2022. FINDINGS:There are scattered areas of fibroglandular density. 1: There is a focal asymmetry measuring 0.8 centimeters with associated postbiopsy clip in the retroareolar region of the right breast. Focal asymmetrycorrelates to the palpable finding in the right breast. Patient is status postrecent outside performed biopsy with final pathology results demonstrating anintraductal papilloma with usual ductal hyperplasia and stromalmicrocalcification s. 2: There are multiple similar obscured masses in both breasts. Tomosynthesis performed in CC and MLO projections. IMPRESSION:1: Focal asymmetry in the retroareolar region of the right breast is benign. 2: Masses in both breasts require additional imaging evaluation. An ultrasoundexam is recommended. BI-RADS Category 0:Incomplete: Needs Additional Imaging Evaluation Lab Interpretation Abnormal (test code = 40629-7) [facility] Outside Interpretation 2022-05-28 20:08:14 Test Item Value Reference Range Interpretation Comments Materials Received (test i7poaPMdCEDutRSpNtJv code = 9973) AWSqUFAll6nvKDNmrNPv ZzEwMzNcZnRuYmpcdWMx SFBgPtJrp0qmk590jMHf a9teWTXlAuI1xNCzOVFf nSMoX000WPLqKJjsh7ca h5IzEHVgfGLpj3M0LUUC owpraLb6wMzvK28rg1Q0 NkyqR9mvIETrVVGiL2Lf UT8lAIPxIqe1FPF6UFF9 GYPgKOGaX8GmRP8lMESk yTAzOPb0d1vdgRylDZZj MHG5v9xdNNicczDtBC3d ps8ibUo9f3xquoIjERDt CXWxtQRKCRDmU1KacAbz Nt5jpIl9aRdxYigwLLO2 Nge2GC8fou13cbs8sIdz NPGvzjnnZwX7EAcuGTNk dhdkHUt6ICxxHDIaqYrt MFxtYXJncjcyMFxtYXJn eWE9YFMkhOPiW3UwWSTr TQowDGBjjbx1SxHoLg8r vGWxpPssLDnkh8kqk6mp xEFbCfu4GNKfClZfPinp PXdho8Pcm6iyCUKwxu9u OBW8iJOeoOdka0J0gZNh ATChxXKbkrAyFQQgrj46 eGInqZWqhDGqaw6ocyEp oSEvtYQyRTM6qZHgmzYl SHJasGEaXHTsAF6bqYQu FEIivP4ppntiVNGeDkIe bbugCQVobZjcbkSfCe9c fArgNHQ5RNzzP2djbE9p IvS8QIpsM6ropR3oWZa4 NSacaNQ0XSGwkD6pJX5x ecmly0egYtKnWD1pugab m8cuQnCuUP4lwoz4c1js THD1XGneOMVsUxQ9zbI2 NDBcaGVhZGVyeTcyMFxm q767FGG1GfDbVNIkz7Ks J4KchHzgW60dpRzdB31i DNDhnFwqsU7niVjmlO9x HcQoLeSkGTy5hr61UJz0 jegmuExrASd9huLmNEMo IDB4PFQsfOXvPTAmF0n8 pjEqNUJkYIN1NMHwlDSu ISZoO0v3ibYoPFX6ALi8 cnBhZGRmdDNcdHJwYWRk YjBcdHJwYWRkZmIzXHRy oYPnqBBbsGTjmC7smNat XCJmgXOudA1vDXC7CJPr cmgzMjBcdHJoZHJcbHRy bu78PTZbvdSdzUOgtIvx yXFhMWV1SBByRRPuBPUg ZNW1CJKiEpKiucXrELru bGJyZHJiXGJyZHJzXGJy XGO1HKCxQfWgxkGtVKke bGJyZHJsXGJyZHJzXGJy DGC7FRZgZtCpuoByILui bGJyZHJyXGJyZHJzXGJy PYZ8DBVnDbIzdsSrLHlf bHBhZHQxMFxjbHBhZGZ0 J6isyTQmRMLlTCoivPZl MSRqS7tlbETnIFrsQVUf cGFkZmwzXGNscGFkYjBc G1bbNOGiPaIoC5UgnHo5 MDAwXGNsdmVydGFsdFxj uLMqRHC1NJVfGSMrARQa MDW7YEGgFwCwmrAcPMkf bGJyZHJiXGJyZHJzXGJy UMO3TJNhFiUkmiWfUWyq bGJyZHJsXGJyZHJzXGJy LDM9TUPnMhNoliOdUFjn bGJyZHJyXGJyZHJzXGJy LHH9TFOkFwOahjQoDDol bHBhZHQxMFxjbHBhZGZ0 S4vlbAYmDNTyBNgegQFr OUOuC5hpnSKvCUfpWFSn cGFkZmwzXGNscGFkYjBc Q3wtLRHcIhRsC0MlgGe9 NjAwXGNsdmVydGFsdFxj xHHmTHD1AHHvRYHnRIQr CZL5ZZRmVdAmstNeCTgt bGJyZHJiXGJyZHJzXGJy VTP2KGMlWaQyqhQzAXzw bGJyZHJsXGJyZHJzXGJy DDE2LEIaYoPtccAyFTcl bGJyZHJyXGJyZHJzXGJy KUP4JRApMbTeozGdKKox bHBhZHQxMFxjbHBhZGZ0 U4thnYUnAQCkJIklqAQf ENErU6cacGUvXHoqWCVz cGFkZmwzXGNscGFkYjBc Z8whXYYuInZgZ4IiwWd9 VnSjBEJhpbBzpB85Pnsw e0CtQPBgSMR4HDjcIHzj bFxwbGFpblxmMVxmczIw XQiwmlupTLLgFZaxM5zk BgUjLXXyrLgrKQewo4Vm XGYxXGNmMlxmczIwXGIg IBJqUPEgzT1xIiluP1Fd tR3gNWrgScsyJ4guNSFr k4NbyV4sSQmewFWijhzx MVxmczIwXGxhbmcxMDMz GNlrU8smJoZaVLVjtXcy OFbnp2FxCNYlSGLlGcxl kuHeCLa5ghUjRSHeiLce wCYpHEircmCwiGynj7Du huRfpYrxRMRxGSl3nrTr dufscOa2lDLyoDrbLHIk eTiboG5xOmMpRkRiYSfg bGFpblxmMVxmczIwXGxh rjbqCDOlPGhkH4jjQqGg NGIabJokSGmic3DbIVIv EOIrGqypvwBmLGFeA63i bGVjdGVkXHBsYWluXGYx XGZzMjBcbGFuZzEwMzNc aGljaFxmMVxkYmNoXGYx BJvrZ5kkFrYyW9IwZCPd AyDheWJzW5awJ5ZeyNwg YXJkXGludGJsXHNzcGFy BZB1gTNhqzAuhQQisYNc NXVsMPptDOO6lBIutbzo yDQdwufhBHdyjeV8NNMw YWluXGYxXGZzMjBcbGFu ZzEwMzNcaGljaFxmMVxk PyHdKPUdIEdzS7yoYeEk P1JcRLGzGqJkFgTSJFUf aXZlZFxwbGFpblxmMVxm czIwXGxhbmcxMDMzXGhp D9glEpQrMXIbvXgyKMjk e9ArFBWkPKTyJptjwdIj MNs9hbDkUUSqzPiqtI97 Crpoud57TBWts7tkLJGc V7DniBUuMPEbzIExFCqr MDhcdHJwYWRkZmwzXHRy cGFkZHIxMDhcdHJwYWRk ZnIzXHRycGFkZHQwXHRy eBQgQVP0R6c7peXmQMHp ECp2pgGyPUKrHnUhaHBn FGA9OFg9UccreaH5rHNf L9x5CuxamrAjAXtmmBFj oe81KFOksuEjvCKqqUsg sICbFWE0FKAaCEXkOOSk CPW5OXGoCfOkivXxAZfy bGJyZHJiXGJyZHJzXGJy DMW2BBOuRqPsitWdMTan bGJyZHJsXGJyZHJzXGJy HMN7NPFgVxAawtYjCVpy bGJyZHJyXGJyZHJzXGJy SRO4GMMyNtFvoaOjCZok bHBhZHQxMFxjbHBhZGZ0 N1shaVZkUJOlFWyswOZe IADnF9gfaSToJDncPLVo cGFkZmwzXGNscGFkYjBc H6rdMMPqPlBkS0XsdNx2 MDAwXGNsdmVydGFsdFxj oRJkPIX9PYAjIQLjDGFc JGE9ZBLbSgSovqPlXFns bGJyZHJiXGJyZHJzXGJy QBL8YMDgYiMuyoIoZMmm bGJyZHJsXGJyZHJzXGJy XFM4CTPdMkOvmmCdHWlp bGJyZHJyXGJyZHJzXGJy VUQ3WQUlQdOwkzTeQAtj bHBhZHQxMFxjbHBhZGZ0 I7wvyUEwYWWxLHdwiEGq AZIsJ7uvsFLiDDvuTFYv cGFkZmwzXGNscGFkYjBc J5zvARKcPxDvB6McfOa2 NjAwXGNsdmVydGFsdFxj xGNoCAL1QDKeZTWnRITz EZY0TMAzJiOzhfYwIRbx bGJyZHJiXGJyZHJzXGJy RPY2ZFOrFcOwyuQpPVef bGJyZHJsXGJyZHJzXGJy BOB0DRKiAjCsgnNiMZxr bGJyZHJyXGJyZHJzXGJy ZCN8UVMiOfCdwzFoVSby bHBhZHQxMFxjbHBhZGZ0 A9wmkRScNRIcGRuwuJZn XBIlW6sztQSfJXxbFUPs cGFkZmwzXGNscGFkYjBc W4ncJTTqJpKuV9KrnMy4 MiVqPOMdijHumZ14Pqqj v4VnDALcVLS6QJhwFHfs bFxwbGFpblxmMFxmczI0 XHBsYWluXGYxXGZzMjBc bGFuZzEwMzNcaGljaFxm TNfnJkImFKHzIUkzQ8hx RhTgR9TlVNDlZmBiQI7i TFMtMjItMDAwOTcxLCA2 WYVYUXQpVTIVE5HPLghh UUQFS5SnvEpecL1pZuDa EhBgHNxxNL2jHBBlX7oe kKUtOJIeADMuX6xkWcPt wP3ufXubRWztIyOsEpMz MFxsdHJjaFxjZWxsXHBh xrVdyD53Zydzp3QqNLRj RYH5TLuxOEidiKnqfGKq xaaiREviifJ4XKUnTMjj XGYxXGZzMjBcbGFuZzEw MzNcaGljaFxmMVxkYmNo XDUkBWnbD1ziGpRxM9Kz YQSaQkMoQE1zJa6kJPGv XHBsYWluXGYxXGZzMjBc bGFuZzEwMzNcaGljaFxm XUrzRjPiOFHcTBnoI5fz CcDzQ8JzUOQoNqQzkCBa O8ctE2NiqItjXHGlNXoq aVPiQEFmrOGpEIS1cSYk mwLamPgcuDdvzD2nIfQt ZnMyNFxwbGFpblxmMVxm czIwXGxhbmcxMDMzXGhp I5uoGdUhGNOrfFdgMSeo d3SiRBXeYIKpUztygaZn IDcvMjkvMjAyMlxwbGFp blxmMVxmczIwXGxhbmcx KNZyGLupS0qgDsOrJDWd eTumZFxji8MzQGJpBHLz SceradCoAQd5xvArBPZq eJdcwH30Wqosjq17AHLi rbRtc3VzRQSeJUV1KHlg MFxxbFxwbGFpblxmMFxm ssU7USDqPDbuMVWeBYTu MjBcbGFuZzEwMzNcaGlj aFxmMVxkYmNoXGYxXGxv A2fgCuIwKdRqPCpeWKI7 Diagnosis (test code = y6dlfCPqFLPouDK8NMEr 34) OOImo5tjw7BptYIbrARo HPyjsHWmexZqkc19wMX6 kQ88ZV1mJJGlMxD1HBTm ltI6Pcf7LZAyPWSwkWZp B269v1avk3datlPnqHM2 MZHxKWZwK4CgPF6pZIYq fLJpD74hlDOzQUK7NTGa INNvyEKkTPGtJKN1SDOc uZYnG1wcTMJuSX4emrrj TZewIMknWPRsxVJ3BGTj oLDnJ7EfXRArWSckPCZz ydx4MmBxKp7buCIbdLop MFxwYXJkXHBsYWluXGZz ZpCgK5RxUA39zRJpHOFz cRE1ACWsQLloMBcARCHt MHCnFGw5NCdxVXGajXup TZEyHILxowHcz6cyc8qp XfvpVDNwG7CzBLJmjmqb mWbqHYabsU79XlMnGzpc dVKbAbZkYVR1MTGxLuKs UGFaKZEyWDKfd03wsjxb mCpcOXA3aYKeGEArcK9r AWi4oSVjXQEgw0PpRKDf l0AhmHMpVU9EQMQSRwXl sTH1ISsyKGFsHAXmXJPu ACIfCXQfpG07ko7qfQUf bnMpOlxwYXJccGFyXGxp UhC7XHprxO32JjOboCmq ZcJ8LLBBT1sbxu7ddQ6d IGludHJhZHVjdGFsIHBh sZvzxS1pYTX1oAEyOCIw cNQbFRB9G7EbbBTglFAh ymNqDGMiBXWbkfMki6Lr y42zuUSiuXQtl7BeuSQp CybqMKLju14fIRuxSXRq U56hqVIzfGxpILAbejig YXJkXHBhcn0= Comment (test code = w9weyZHrNOTeuBQ1KYXp 9899) KWFpi8czw1PvgTVcdPXl ZXllyQOxdtNurn67lGC6 dI70OL1yWAYvYnX8QFEr djC0Itm3FGJoUPZggIQj X009z3mnd5sygbZznUI2 bEgjKNSolgcgVbE0WSpt QFMcjmfyUHe0JGfiRSQf lQQ1LDUsiPYhR0HiQSVy UW9lbrj1REG3FJmxMZEq HuF3JHTmjKHsVQZyiStw NKaju808HBE6KoPkHAEq ckSwgPi2DmBrgYwcnM8n ZnMyMCBPbiBzdWJtaXR0 ICZkt4N2n9vgFSLxjReg LVPyUDzqxXIgs2A1QTam yiG0yTKzWQ12i9ReiGPx WVazNTxdaLHrz9HzclMq GwKtLR7zIJCnv497lWUq nWRvtABhzZvyf3erVWOw PGQwyeGlXY71BZTuf4Ir JBV4nABaxX46wrMmgFM4 ASygaNOtxJerw08iXSIg ZKLxmtH7pHWrEdxdie88 SFHjrJymzsAwz0IijmPn HpG1kHHvvBEtzJuwEANb XHBhcn0= Disclaimer (test code = z8ciwTWjREEbcDItHcPj 9844) MJRfPYRga7ufLKQrzIYm ZzEwMzNcZnRuYmpcdWMx SCZuUqVwu5bdg397mWXa v5qrQFXtBuM3wZKoERGg lKYlD197DXIxNPyxs9xx o4ZdYABbfCQaw1Z5QZBC aaosfEt5wLeqZ01cv4Z1 ZfwmC2fsKIEhKUVzV7It VU5qWVBwEgt1DHE0FUW5 ZQQwSRHgI8FwWP1oXLUk qWNkKMd2g8exeVfbZFUx ZAQ5z9qlMToycmGjPF2b sp2fwPl0e2dnmnLcHHRb ZPKqrVZTEQFbD5TfdMih Zs8cgVk5dItdVxxjDTO0 Nxt4UB8pby25qwc6hSbm LTUjimlnHzX4UGmuHMJz vchpUTv6LIvkPLKhoHL3 QXNdiNEsC5MhQGXvES0q znf3BMD9WVxeAAHwQbR4 NDBcaGVhZGVyeTcyMFxm q407PLQ9CoDeCV9eY6Mg o9F1xQ1fvDPyBEWvlPBe KhJtDKZujm1ynKFrRUxx j9MuJIN5xwY1iRLelOWj GKHmWZ32Kzcuj3OsWqjb TCE9SQYybcJjo2Uxs8hc HjYkkcWqO2emT4QlFWMn LDPqGUOnBnOnmzOrc1Yu g1ClaECaeAj9k7ktPKLf AHAgeNmup4dsUCJ5DVEl G2E8lGVxi4nqAWsiGLLd jHV4dxP7ZNPzzRPnJ3Sx xY5mYUNzTB8wgov1v6uy QYM4OTlxGIKxPcA7hsL4 NDBcaGVhZGVyeTcyMFxm w152CJJ4TmQoDZYnl9Nk C2NlbVfiN40hwPbmK31y BULjzOfyuZ6igNijuT1u ZjBcZnMyNFxxbFxwbGFp bjajAZmapwQ0JHwdxfnu QNBzQAlvR2btAxZaUVKf tKekLAuwe6XpEIVpYXXr ZfvgjzL6LYYYd55sHFMe f2OoYWAjxO3bvBYwLMwq jhWfnLP9MEnqzvMgPySh gzRzLNKwkN1kWPRvIC9u GWFlerLnei6qlvJiITXg QHTsB4MqyupqsBhwamTn OZExwa7lkqSxEGS4AFDY HH1BFTZqJSQxt03tGSUc eBhavM8hxUJkwdAcRALr f6FfhC6itWKFQGHlZ2jw CI9bTHisx1YbvGFooTLs vTH9NIJxd0IhRjXaeuBt ePTmlBWkR7HusYncG9dp ADRhXPXdduZnkACry1Np YCCusCI5lXRhID1SFeEV m74aGYLxXZDCyhFiFITj gFprkMS1uaZ7zZ8rVmDF ZiBhcHBsaWNhYmxlLCBj l093ns7atjE7LNAgDHYc xrcsn2YpAKFqHVVumJ70 MXLdVPYciq0eurwbeKGi siNtB6Zrokz2vC2eMDPx YWluXGYxXGZzMjJcbGFu ZzEwMzNcaGljaFxmMVxk FpKrQXAtRSixG6dbLyJd ZnMyMlxwYXJ9 [facility], [id number] 11:34:00 Test Item Value Reference Range Interpretation Comments Report Text (test 2022-05-05 833 code = Report Text) Report Text7 (test NO GROWTH WITHIN 24 HOURS code = Report Text7) Report Text8 (test PRELIMINARY REPORT code = Report Text8) Report Text9 (test code = Report Text9) Report Text10 (test 2022-05-06 700 code = Report Text10) Report Text11 (test NO GROWTH WITHIN 48 HOURS code = Report Text11) Report Text12 (test PRELIMINARY REPORT code = Report Text12) Report Text13 (test code = Report Text13) Report Text14 (test PD 2022-05-07 1134 code = Report Text14) Report Text15 (test NO GROWTH WITHIN 72 HOURS code = Report Text15) Report Text16 (test FINAL REPORT code = Report Text16) CULTURE, [id number] 06:58:00 Test Item Value Reference Range Interpretation Comments Report Text (test 2022-05-05 819 code = Report Text) Report Text7 (test NO GROWTH WITHIN 24 HOURS code = Report Text7) Report Text8 (test PRELIMINARY REPORT code = Report Text8) Report Text9 (test code = Report Text9) Report Text10 (test 2022-05-06 657 code = Report Text10) Report Text11 (test NO GROWTH WITHIN 48 HOURS code = Report Text11) Report Text12 (test FINAL REPORT code = Report Text12) [id number] 14:27:00 [facility] : 1960 Sex: F[address] [id number] IMAGING REPORTPatient Name: Tank LEWISte of Service: [id number]: 61 Sex: F Order #: 100 Room: OPODOB: 1960 X-Ray Number: [id number] Record Number: [id number] Hospital Number: [id number] Physician: JAYDEN BURT/Daviding Physician: VLADIMIR BURT/DARELL THYROID 02/01/2022 1:48 PM:History: foreign sensation in throat . Difficulty swallowing. Globussensation.Comparison: None.Technique: Grayscale and color Doppler imaging of the thyroid glandFindings:The thyroid is normal in size and sonographic appearance with the rightlobe measuring 3.7 x 1.2 x 1.2 cm and the leftlobe measuring 3.5 x 1.1 x1.1 cm. The isthmus is normal in size and appearance measuring 4 mm. Thereis no thyroid nodule. There is normal color Doppler signal to the thyroidgland.Impression:Normal thyroid.Electronically Signed By: Mitch Charles M.D., 02/01/2022 2:24 PMLegally authenticated by LENNY JOHNSON 2022-02-01 14:24:34CULTURE, [id number] 09:09:00 Test Item Value Reference Range Interpretation Comments Report Text (test VANE 2022-01-16 759 code = Report Text) Report Text7 (test NO GROWTH WITHIN 24 HOURS code = Report Text7) Report Text8 (test PRELIMINARY REPORT code = Report Text8) Report Text9 (test code = Report Text9) Report Text10 (test VANE 2022-01-17 909 code = Report Text10) Report Text11 (test NO GROWTH WITHIN 48 HOURS code = Report Text11) Report Text12 (test FINAL REPORT code = Report Text12) [id number] 18:45:00 Test Item Value Reference Range Interpretation Comments GLUCOSE (test code = URGLU) NEGATIVE MG/DL NEG-100 BILIRUBN (test code = URBILI) NEGATIVE NEGATIVE KETONE (test code = URKET) NEGATIVE MG/DL NEGATIVE BLOOD (test code = URBLD) MODERATE UR PH (test code = URPH) 5.5 5.0-7.5 PROTEIN (test code = URPRO) NEGATIVE MG/DL NEGATIVE NITRITES (test code = URNIT) NEGATIVE NEGATIVE UROBILINGEN (test code = 0.2 EU/DL 0.2-1.0 URURO) LEUKOCYT (test code = URLEU) NEGATIVE NEGATIVE UA COLOR (test code = UA YELLOW YELLOW COLOR) CLARITY (test code = CLARITY) CLEAR CLEAR SP GRAV (test code = URSPGRAV) 1.020 1.000-1.025 UAMICRO (test code = UAMICRO) YES WBC (test code = URWBC) 0 /HPF 0-5 RBC (test code = URRBC) 16 /HPF 0-2 H CASTS (test code = CAST) 1 /LPF 0-3 UR EPI (test code = EPI) 44 /LPF BACTERIA (test code = NEGATIVE NONE BACTERIA) CHEST XR 2 [id number] 12:13:00 [facility] : 1960 [facility] [place] [id number] IMAGING REPORTPatient Name: Tank LEWIS of Service: [id number]: 61 Sex: F Order #: 100 Room: OPODOB: 1960 X-Ray Number: [id number] Record Number: [id number] Hospital Number: [id number] Physician: DAMARIS PARHAM Physician: DAMARIS PARHAM 2 VIEWS 07/26/2021HISTORY: Productive cough for yearsCOMPARISON: 05/16/2018TECHNIQUE: PA and lateral views of the chestCardiac, hilar, and mediastinal structures are normal. Lungs arewell-aerated and clear. No acute bony or soft tissue abnormalities areidentified.IMPRESSION:Clear chest.Electronically Signed By: Destin Garcia M.D., 07/26/2021 12:10 PMLegally authenticated by SEAN BIRMINGHAM 2021-07-26 12:10:33ABDOMEN 1 [id number] 12:12:00 [facility] : 1960 Sex: F[address] [id number] IMAGING REPORTPatient Name: Nadia LEWIS of Service: [id number]: 60 Sex: F Order #: 100 Room: OPODOB: 1960 X-Ray Number: [id number] Record Number: [id number] Hospital Number: [id number] Physician: DAMARIS PARHAM Physician: DAMARIS PARHAM one view 05/11/2021History: Left flank pain, hematuriaComparison: CT of 11/25/2020TECHNIQUE: Supine AP view of the abdomenBowel gas pattern is normal with some stool scattered in the colon. Thereis no definite free air. Bones and soft tissues are stable. Calcificationsscattered in the pelvis appear to be due to phleboliths once again.Impression:No definite acute process or adverse change.Electronically Signed By: Destin Garcia M.D., 05/11/2021 12:10 PMLegally authenticated by SEAN BIRMINGHAM 2021-05-11 12:10:42CT ABDOMEN/PELVIS [id number] 13:22:00 [facility] : 1960 Sex: F[address] [id number] IMAGING REPORTPatient Name: Nadia LEWIS of Service: [id number]: 60 Sex: F Order #: 100 Room: OPODOB: 1960 X-Ray Number: [id number] Record Number: [id number] Hospital Number: [id number] Physician: DAMARIS PARHAM Physician: DAMARIS PARHAM abdomen and pelvis.History: Flank, and/or back pain.Technique: Entirely unenhanced CT axial images of the abdomen and pelviswith sagittal and coronal reformatted images were reviewed.This CT exam was performed using one or more of the following dosereduction techniques: Automated exposure control, adjustment of the MAand/or KV according to patient size or use of iterative reconstructiontechnique.Comparison: None.Findings:Images of the lower lungs and mediastinum demonstrate no specific defects.The solid large organs of the upper abdomen appear focally normal.The gallbladder appears normal.There is no significant retroperitoneal adenopathy or fluid collectionsdepicted.No obvious bowel abnormalities are depicted.The urinary bladder appears normal. There is no pelvic free fluid seen.Impression:No specific acute appearing abdominal abnormalities.Unenhanced exam.Electronically Signed By: Ruben Valverde M.D., 11/25/2020 1:20PMLegally authenticated by ELBERT Polo 2020-11-25 13:20:23MRI LUMBAR W/O [id number] 13:57:00 [facility] : 1960 Sex: F[address] [id number] IMAGING REPORTPatient Name: Nadia LEWIS of Service: [id number]: 60 Sex: F Order #: 100 Room: OPODOB: 1960 X-Ray Number: [id number] Record Number: [id number] Hospital Number: [id number] Physician: DAMARIS PARHAM Physician: DAMARIS PARHAM lumbar spine without contrast 09/26/2020HISTORY: Persistent low back pain post fall 9 years agoCOMPARISON: Same day x-rays andprior MRI of 05/05/2009TECHNIQUE: Multiplanar, multiecho imaging of the lumbar spine withoutcontrastFINDINGS:There are 5 lumbar levels. Conus medullaris tip is posterior to T12-L1 andthe distal spinal cord is normal.Vertebral body heights are maintained. There is mild rightward curvature ofthe mid lumbar spine.No acute fracture, spondylolysis or spondylolisthesis. Minimal anteriorosteophytes are noted from L3-4 inferiorly.The L1-2 and 2-3 disc levels are essentially normal. Minimal ligamentflavum and facet hypertrophic changes are evident at these levels.Mild disc dehydration and disc space height loss are observed at L3-4 whereshallow broad-based disc bulge projects up to 3 to 4 mm behind thevertebral bodies. Central spinal canal distance is 10 mm. Ligament flavumand facet hypertrophic changes areevident. There is mild bilateralforaminal narrowing. Disc bulge may contact exiting nerve rootsbilate rally. Similar findings are observed at L4-5. An annular fissure issuspected in the left foraminal region at the L4-5 level as well.The L5-S1 disc space height is fairly well-maintained. Broad-basedposterior disc protrusion projects up to 4 mm behind the vertebral bodies.Central spinal canal distance is on the order of 10 to 11 mm. Ligamentflavum and facet hypertrophic changes are observed. There [id number] bilateral foraminal narrowing with possible impingementupon the exiting nerve roots.IMPRESSION:Bony and discogenic degenerative changes of the mid to lower lumbar spineas discussed.Electronically Signed By: Destin Garcia M.D., 09/26/2020 1:55 PMLegally authenticated by SEAN BIRMINGHAM 2020-09-26 13:55:34 Z-ORG SCREEN MAMMO [id number] 16:26:00 [facility] : 1960 [facility]: [facility] [place], [place] [id number] IMAGING REPORTPatient Name: Tank LEWISte of Service: [id number]: 60 Sex: F Order #: 100 Room: ORMDOB: 1960 X-Ray Number: [id number] Record Number: [id number] Hospital Number: [id number] Physician: DAMARIS PARHAM Physician: DAMARIS PARHAM BILATERAL SCREENING MAMMOGRAM WITH 3-D TOMOSYNTHESIS 08/18/2020HISTORY: Breast cancer screeningTECHNIQUE: Standard digital screening mammogram images were obtained. 3-Dtomosynthesis images are also evaluated.COMPARISON: 2015 and 2013MAMMOGRAPHER: WHIT Carrillo (Clemente)FINDINGS:There are scattered areas of fibroglandular density in both breasts.Numerous subcentimeter nodular densities scattered in the breasts appearessentially stable given technical differences.No definite new abnormalities.IMPRESSION:BI-RADS Category 2,benign findings.Routine annual follow-up recommended.PLEASE NOTE:1. In up to 10% of patients, cancers are not visible on mammography.2. If a suspicious lump is palpated, biopsy should not be deferredbecause of a negative mammogram.[facility]GRAPHY AT [facility] IS ACCREDITED BY THEMOUNT [facility] CENTERAN COLLEGE OF RADIOLOGYElectronically Signed By: Destin Garcia M.D., 08/18/2020 4:24 PMLegally authenticated by SEAN BIRMINGHAM 2020-08-18 16:24:21BONE [id number] 16:10:00 [facility] : 1960 Sex: F[address] [address]NGLHNLRRMP IMAGING REPORTPatient Name: Nadia LEWIS of Service: [id number]: 60 Sex: F Order #: 200 Room: ORMDOB: 1960 X-Ray Number: [id number] Record Number: [id number] Hospital Number: [id number] Physician: DAMARIS PARHAM Physician: DAMARIS PARHAM densitometryHistory: Osteoporosis screeningNo comparison.Region of interest evaluation in the lumbar spine from L1 to L4 shows a BMDof 1.291 g/sq cm with T score of 0.9. Left femoral neck BMD is 0.738 g/sqcm with T score of -2.2. Right femoral neck BMD is 0.778 g/sq cm with Tscore of -1.9.FRAX results show 10 year probabilityof major osteoporotic fracture at4.3% and hip fracture at 0.6%.Impression:There is osteopenia of each of the femoral necks. Fracture risk is detailedabove.Electronically Signed By: Dominic Barr M.D., 08/18/2020 4:07 PMLegally authenticated by SWATHI IRELAND JR 2020-08-18 16:07:38NM HIDA SCAN WITH [id number] 12:17:[address] [address]ENVUHKWYGF IMAGING REPORTPatient Name: Nadia LEWIS of Service: 29-11-3150Oki: 59 Sex: F Order #: 100 Room: OPEDOB: 1960 X-Ray Number: [id number] Record Number: [id number] Hospital Number: [id number] Physician: YEYO BREWSTEROrdering Physician: JAIDEN BREWSTEROH[facility] HEPATOBILIARY SCAN WITH CALCULATED GALLBLADDER EJECTIONFRACTION 05/18/2020HISTORY: Abdominal pain5.0 mCi of technetium 99m Choletecwere used for initial imaging. Kinevac1.3 mcg were given IV for evaluation of gallbladder ejection fraction.Comparison: Ultrasound of 01/08/2020FINDINGS:Liver activity is fairly homogeneous. Gallbladderactivity is seen usvntg48 minutes. Bowel activity is observed at the end of the exam.Calculated gallbladder ejection fraction is 91% with normal being 35% orgreater.IMPRESSION:No cystic or common bile duct obstruction.Gallbladder ejection fraction within normal limits.Electronically Signed By: Destin Garcia M.D., 05/18/2020 12:14 PMLegally authenticated by SEAN BIRMINGHAM 2020-05-18 12:14:32TISSUE TRANSGLUTAMINASE [id number] 23:06:00 Test Item Value Reference Range Interpretation Comments T-TRANSGLUTAMINASE (TTG) IGA (test <2 U/mL 0-3 code = TTG) AMYLASE, [id number] 18:49:00 Test Item Value Reference Range Interpretation Comments AMYLASE (test code = AMYLBLD) 103 U/L 30-110 [id number] 18:49:00 Test Item Value Reference Range Interpretation Comments LIPASE (test code = LIPA) 173 U/L 23-300 [id number] 18:49:00 Test Item Value Reference Range Interpretation Comments SODIUM (test code = 138 MMOL/L 137-145 NA) K+ (test code = 4.9 MMOL/L 3.5-5.1 PLEASE NOTE NEW KSERUM) REFERENCE RANGE (S) IN EFFECT EFFECTIVE 010 - NEW ANALYZER (V ITROS 5600) CHLORIDE (test code 102 MMOL/L 98-107 = CL) CO2 (test code = 29 MMOL/L 22-30 CO2) BUN (test code = 16 MG/DL 7-17 BUN) CREA (test code = 0.9 MG/DL 0.7-1.2 CREA) GLUCOSE (test code 88 MG/DL 70-99 Fasting glucose = GLUCOSE) normal <100 MG/ DL- [employer] recommendation* * CALCIUM (test code 10.3 MG/DL 8.4-10.2 H = CABLOOD) TOTPROT (test code 7.2 G/DL 6.3-8.2 = TOTPROT) ALBUMIN (test code 4.5 G/DL 3.5-5.0 = ALBSERUM) BILITOT (test code 0.3 MG/DL 0.2-1.3 = BILITOT) AST (test code = 30 U/L 15-46 AST) PHOSALK (test code 70 U/L 38-126 = PHOSALK) ALTV (test code = 16 U/L 13-69 ALTV) GFR (test code = 82 A GFR of >9 0 GFR) mL/min/1.73m2 mL/min/1.73m2 is considered norm al. [id number] 17:02:00 Test Item Value Reference Range Interpretation Comments WBC (test code = 6.9 K/UL 3.5-10.9 WBC) RBC (test code = 3.98 M/UL 4.0-5.0 L RBC) HGB (test code = 12.1 G/DL 11.5-15.5 HGB) HCT (test code = 39.0 % 34-46 HCT) MCV (test code = 98.0 FL 80-98 MCV) MCH (test code = 30.4 PG 28-32 MCH) MCHC (test code = 31.0 G/DL 32.5-36.5 L MCHC) RDW (test code = 13.2 % 11.5-14.5 RDW) PLT (test code = 319 K/UL 150-450 PLT) MPV (test code = 10.6 FL 7.4-10.4 H MPV) MANDIFF (test code = NO MANDIFF) SCAN (test code = NO SCAN) NEUT% (test code = 53.7 % 40-75 NEUT%) LYMPH% (test code = 34.7 % 24-44 LYMPH%) MONO% (test code = 9.6 % 0-13 MONO%) EOS% (test code = 1.0 % 0-4 EOS%) BASO % (test code = 0.7 % 0-2 BASO%) IG (test code = IG) 0 % 0-1 IG% (test code = 0.3 % 0-1 IG% = Metam yelocytes, IG%) Myelocytes, and Promyelocytes. (Immature neutr ophils not including " bands".) > 3% IG indic ates risk of sepsis NRBC% (test code = 0 /100 WBC NRBC%) ABS NEUT (test code 3.7 K/UL 1.2-7.2 = NEUT) US LIMITED ABD [id number] 10:03:[address] [address]FPSILFPJGO IMAGING REPORTPatient Name: Nadia LEWIS of Service: 49-71-4662Cuj: 59 Sex: F Order #: 100 Room: OPODOB: 1960 X-Ray Number: [id number] Record Number: [id number] Hospital Number: [id number] Physician: DAMARIS PARHAM Physician: DAMARIS PARHAM ultrasound.History: Epigastricpain with nauseaTechnique: Transabdominal ultrasound images of the abdomen were reviewed.Comparison:Ultrasound limited abdomen 06/13/2016Findings:Sonographic evaluation of the liver is within normal limits. The commonbile duct measures 0.3 cm. The gallbladder is within normal limits. Noevidence of gallstones or a pericholecystic fluid collection. The portalvein, IVC and aorta are within normal limits. The visualized portions ofpancreatic head and body are within normal limits, otherwise bowel gaslimits evaluation of portions of the body and tail. The right kidneymeasures 8.2 x 4.4 x 3.7 cm. There is no evidence of hydronephrosis orshadowing renal calculi.Impression:No specific ultrasound evidence for the patient's epigastric pain.Electronically Signed By: Dominic Barr M.D., 01/08/2020 10:01 AMLegally authenticated by SWATHI IRELAND JR 2020-01-08 10:01:32PATHOLOGY [id number] 14:19:00TISSUE CONSULTATION REPORTBASOUTH TEXAS HEALTH SYSTEM EDINBURGDEPARTMENT OF PATHOLOGYP.O. [address]B[place], [place] [address] ROBERT FER SULLIVAN M.D.ROBERT L. HUTTON, M.D.CHARLES E. BURNS, M.D. ____Patient: KAYLA LEWIS 1960 59 FRoom:[facility]#: [id number] Ordering Physician: PRASHANTH BREWSTER Rec.: 10/06/2019Date of Proc.: 10/06/2019Lab No.: [id number] PRE-OPERATIVE DIAGNOSIS:Epigastric pain, GERD, colon screening.FINAL ANATOMIC DIAGNOSIS:A. DUODENAL BIOPSY, SECOND SEGMENT:SMALL INTESTINAL MUCOSA WITH NO SIGNIFICANT HISTOPATHOLOGIC CHANGE.B. GASTRIC ANTRAL BIOPSY:MILD REACTIVE GASTROPATHY; NO EVIDENCE OF DYSPLASIA OR MALIGNANCY.H- PYLORI NOT IDENTIFIED MICROSCOPICALLY.MICROSCOPIC EXAMINATION:A. Three slides examined description omitted.B. Three routine slides, Noé, and Alcian Blue/PAS stainsexamined, description omitted.GROSS APPEARANCE:A. Labeled "duodenal biopsy second segment," consists of two biopsyfragments 2 mm each. Submitted in cassette A.B. Labeled "antral biopsy," consists of one biopsy fragment 2 mm.Submitted in cassette B.PATHOLOGIST: Mitch March Electronically Signed: 10/07/2019Whole blood natriuretic peptide B measurement (mass/volume) 2019-09-18 13:42:00 Test Item Value Reference Range Interpretation Comments Bedside B-Type Natriuretic Peptide 19 pg/mL 0-99 (test code = 39792-9) [facility] (mass/volume) 2019-09-18 13:03:00 Test Item Value Reference Range Interpretation Comments Bedside Troponin I (test code = 0.00 ng/mL 0.00-0.07 22076-3) [facility] HealthAutomated blood leukocyte count (number/volume)2019-09-18 12:55:00 Test Item Value Reference Range Interpretation Comments White Blood Count (test code = 7.2 10*3/uL 4.5-11.5 6690-2) [facility] HealthBlood erythrocytes automated count (number/volume)2019-09-18 12:55:00 Test Item Value Reference Range Interpretation Comments Red Blood Count (test code = 3.77 10*6/uL 3.8-5.1 789-8) [facility] HealthBlood hemoglobin measurement (mass/volume)2019-09-18 12:55:00 Test Item Value Reference Range Interpretation Comments Hemoglobin (test code = 718-7) 11.6 g/dL 12.0-15.2 [facility] HealthAutomated blood hematocrit (volume fraction)2019-09-18 12:55:00 Test Item Value Reference Range Interpretation Comments Hematocrit (test code = 4544-3) 35.9 % 34.0-45.5 [facility] HealthAutomated erythrocyte mean corpuscular volume (MCV) measurement 2019-09-18 12:55:00 Test Item Value Reference Range Interpretation Comments Mean Corpuscular Volume (test code = 95 fL 80-94 787-2) [facility] HealthAutomated erythrocyte mean corpuscular hemoglobin (mass per erythrocyte)2019-09-18 12:55:00 Test Item Value Reference Range Interpretation Comments Mean Corpuscular Hemoglobin (test 30.8 pg 27.0-33.0 code = 785-6) [facility] HealthAutomated erythrocyte mean corpuscular hemoglobin concentration measurement (mass/[id number] 12:55:00 Test Item Value Reference Range Interpretation Comments Mean Corpuscular Hemoglobin Concent 32.3 g/dL 33.0-37.0 (test code = 786-4) [facility] HealthAutomated erythrocyte distribution width [id number] 12:55:00 Test Item Value Reference Range Interpretation Comments Red Cell Distribution Width (test code 13.6 % 10.7-14.5 = 788-0) [facility] HealthAutomated blood platelet count (count/volume)2019-09-18 12:55:00 Test Item Value Reference Range Interpretation Comments Platelet Count (test code = 337 10*3/uL 150-450 777-3) [facility] HealthAutomated blood platelet mean volume igugcizlujj4037-99-31 12:55:00 Test Item Value Reference Range Interpretation Comments Mean Platelet Volume (test code = 10.2 5.7-10.7 83359-3) [facility] HealthAutomated blood neutrophil count as percentage of total klqjbvnmpk3405-97-56 12:55:00 Test Item Value Reference Range Interpretation Comments Neutrophils (%) (Auto) (test code = 58 % 47-75 770-8) [facility] HealthAutomated blood immature granulocyte count as percentage of total lhqgktikrk0221-09-97 12:55:00 Test Item Value Reference Range Interpretation Comments Immature Granulocyte % (Auto) (test 0 % 0-0 code = 34240-9) [facility] HealthAutomated blood lymphocyte count as percentage of total cszklvwvre5432-84-87 12:55:00 Test Item Value Reference Range Interpretation Comments Lymphocytes (%) (Auto) (test code = 31 % 25-44 736-9) [facility] HealthAutomated blood monocyte count as percentage of total leukocytes 2019-09-18 12:55:00 Test Item Value Reference Range Interpretation Comments Monocytes (%) (Auto) (test code = 9 % 3-10 5905-5) [facility] HealthAutomated blood eosinophil count as percentage of total vndrcdljty0608-79-56 12:55:00 Test Item Value Reference Range Interpretation Comments Eosinophils (%) (Auto) (test code = 2 % 0-7 713-8) [facility] HealthAutomated blood basophil count as percentage of total leukocytes 2019-09-18 12:55:00 Test Item Value Reference Range Interpretation Comments Basophils (%) (Auto) (test code = 1 % 0-1 706-2) [facility] HealthAutomated blood nucleated erythrocyte count as percentage of total tgygxzyups8534-67-05 12:55:00 Test Item Value Reference Range Interpretation Comments Nucleated Red Blood Cells % (test code 0.0 % 0-0.2 = 73011-5) [facility] HealthAutomated blood neutrophil count (number/volume)2019-09-18 12:55:00 Test Item Value Reference Range Interpretation Comments Neutrophils # (Auto) (test code = 4.1 10*3/uL 1.3-6.7 751-8) [facility] HealthAutomated blood immature granulocyte count as percentage of total afgjaqolio0550-92-68 12:55:00 Test Item Value Reference Range Interpretation Comments Immature Granulocyte # (Auto) 0.0 10*3/uL 0.0-0.0 (test code = 63313-4) [facility] HealthAutomated blood lymphocyte count (number/volume)2019-09-18 12:55:00 Test Item Value Reference Range Interpretation Comments Lymphocytes # (Auto) (test code = 2.2 10*3/uL 1.4-4.1 731-0) [facility] monocytes automated count (number/volume)2019-09-18 12:55:00 Test Item Value Reference Range Interpretation Comments Monocytes # (Auto) (test code = 0.6 10*3/uL 0-1.3 742-7) [facility] HealthAutomated blood eosinophil hnspq0085-59-79 12:55:00 Test Item Value Reference Range Interpretation Comments Eosinophils # (Auto) (test code = 0.1 10*3/uL 0-0.8 711-2) [facility] HealthAutomated blood basophil count (number/volume)2019-09-18 12:55:00 Test Item Value Reference Range Interpretation Comments Basophils # (Auto) (test code = 0.0 10*3/uL 0-0.1 704-7) [facility] HealthAutomated blood nucleated erythrocyte count (count/volume) 2019-09-18 12:55:00 Test Item Value Reference Range Interpretation Comments Nucleated Red Blood Cells # 0.00 10*3/uL 0-0.01 (test code = 771-6) [facility] comment [id number] 12:55:00 Test Item Value Reference Range Interpretation Comments Manual Differential (test code = Not Ind 8265-1) [facility] HealthFibrin D-dimer DDU measurement in platelet poor plasma (mass/volume)2019-09-18 12:55:00 Test Item Value Reference Range Interpretation Comments D-Dimer (test code = < 215 ng/mL{FEU} 0-500 28697-1) [facility] HealthSerum or plasma sodium measurement (moles/volume)2019-09-18 12:55:00 Test Item Value Reference Range Interpretation Comments Sodium Level (test code = 2951-2) 140 mmol/L 136-145 [facility] HealthSerum or plasma potassium measurement (moles/volume)2019-09-18 12:55:00 Test Item Value Reference Range Interpretation Comments Potassium Level (test code = 4.0 mmol/L 3.5-5.1 2823-3) [facility] HealthSerum or plasma chloride measurement (moles/volume)2019-09-18 12:55:00 Test Item Value Reference Range Interpretation Comments Chloride Level (test code = 108 mmol/L 98-107 2075-0) [facility] HealthSerum or plasma total carbon dioxide measurement (moles/volume) 2019-09-18 12:55:00 Test Item Value Reference Range Interpretation Comments Carbon Dioxide Level (test code = 24 mmol/L 2027-9) [facility] HealthSerum or plasma anion gap determination (moles/volume)2019-09-18 12:55:00 Test Item Value Reference Range Interpretation Comments Anion Gap (test code = 78446-9) 12 06-14 [facility] HealthSerum or plasma urea nitrogen measurement (mass/volume)2019-09-18 12:55:00 Test Item Value Reference Range Interpretation Comments Blood Urea Nitrogen (test code = 16 mg/dL 08-16 3094-0) [facility] HealthSerum or plasma creatinine measurement (mass/volume)2019-09-18 12:55:00 Test Item Value Reference Range Interpretation Comments Creatinine (test code = 2160-0) 0.8 mg/dL 0.6-1.1 [facility] HealthGFR estimate [id number] 12:55:00 Test Item Value Reference Range Interpretation Comments Estimat Glomerular Filtration Rate 78 67-119 (test code = 55144-1) [facility] HealthSerum or plasma glucose measurement (mass/volume)2019-09-18 12:55:00 Test Item Value Reference Range Interpretation Comments Glucose Level (test code = 2345-7) 80 mg/dL 60-100 [facility] HealthSerum or plasma calcium measurement (mass/volume)2019-09-18 12:55:00 Test Item Value Reference Range Interpretation Comments Calcium Level (test code = 75870-0) 9.5 mg/dL 8.4-10.2 [facility] HealthSerum or plasma total bilirubin measurement (mass/volume) 2019-09-18 12:55:00 Test Item Value Reference Range Interpretation Comments Total Bilirubin (test code = 0.5 mg/dL 0.2-1.2 1975-2) [facility] HealthSerum or plasma aspartate aminotransferase measurement (enzymatic activity/volume)2019-09-18 12:55:00 Test Item Value Reference Range Interpretation Comments Aspartate Amino Transf (AST/SGOT) 20 U/L 5-34 (test code = 1920-8) [facility] HealthSerum or plasma alanine aminotransferase measurement (enzymatic activity/volume)2019-09-18 12:55:00 Test Item Value Reference Range Interpretation Comments Alanine Aminotransferase (ALT/SGPT) 14 U/L 0-55 (test code = 1742-6) [facility] HealthSerum or plasma protein measurement (mass/volume)2019-09-18 12:55:00 Test Item Value Reference Range Interpretation Comments Total Protein (test code = 2885-2) 6.8 g/dL 6.4-8.3 [facility] HealthSerum or plasma albumin measurement (mass/volume)2019-09-18 12:55:00 Test Item Value Reference Range Interpretation Comments Albumin (test code = 1751-7) 4.1 g/dL 3.5-5.0 [facility] HealthSerum or plasma alkaline phosphatase measurement (enzymatic activity/volume)2019-09-18 12:55:00 Test Item Value Reference Range Interpretation Comments Alkaline Phosphatase (test code = 61 U/L 40-150 6768-6) [facility] HealthUS EXTREMITY NON-VAS [id number] 14:44:00[address] [address]SUHZBUDBAU IMAGING REPORTPatient Name: Nadia LEWIS of Service: [id number]: 58 Sex: F Order #: 100 Room: OPODOB: 1960 X-Ray Number: [id number] Record Number: [id number] Hospital Number: [id number] Physician: DAMARIS PARHAM Physician: DAMARIS PARHAM JUlonelia right knee 05/19/2019HISTORY: Pain along posterior and medial aspects of the right knee s9zdbnkwDOINGCVDOI: X- rays of 05/11/2019Grayscale and color Doppler imaging at the levels of concern shows nosuspicious solid or cystic mass.IMPRESSION:Negative.Electronically Signed By: Destin Garcia M.D., 05/19/2019 2:42 PMLegally authenticated by SEAN BIRMINGHAM 2019-05-19 14:42:33KNEE 3 [id number] 14:52:[address] [address]ETEEKEQNBE IMAGING REPORTPat ient Name: DEBBIE ISMAELLillian of Service: [id number]: 58 Sex: F Order #: 100 Room: OPODOB: 1960 X-Ray Number: [id number] Record Number: [id number] Hospital Number: [id number] Physician: DAMARIS PARHAM Physician: DAMARIS PARHAM JALICIA 3 VIEWS, 05/11/2019 1:05 PM:History: right knee pain and swelling. . Right knee pain with swelling..Comparison: None.Technique: 3 viewsright kneeFindings/Impression:There is no fracture or malalignment of the right knee. The joint spacesare preserved. The soft tissues are normal. There is no knee jointeffusion.Electronically Signed By: Mitch Charles M.D., 05/11/2019 2:50 PMLegally authenticated by LENNY JOHNSON 2019-05-11 14:50:14CHEST XR 2 [id number] 17:22:[address] [address]NOXBXNUDCA IMAGING REPORTPat ient Name: Nadia LEWIS of Service: [id number]: 57 Sex: F Order #: 100 Room: OPODOB: 1960 X-Ray Number: [id number] Record Number: [id number] Hospital Number: [id number] Physician: Dang DAVIS Physician: ANA DAVIS.05/16/2018 4:54 PMHistory: Wheezing.Technique: PA and lateral chest projections.Findings: PA and lateral views of the chest demonstrate normal heart sizeand clear lungs. No infiltrates or abnormalities are depicted. The osseousstructures appear intact.Impression:No acute-appearing cardiopulmonary abnormalities.Electronically Signed By: Ruben Valverde M.D., 05/16/2018 5:20 PMLegally authenticated by ELBERT Polo 2018-05-16 17:20:04 CHEST XR 2 [id number] 12:28:[address] [address]QGFWJXXSUE IMAGING REPORTPatient Name: Nadia LEWIS of Service: [id number]: 56 Sex: F Order #: 100 Room: OPODOB: [facility] X-Ray Number: [id number] Record Number: [id number] Hospital Number: [id number] Physician: DAMARIS PARHAM Physician: DAMARIS DOVER and lateral chest.Comparison: 07/12/2016.Available clinical information: Cough. History of asthma.Findings: The heart, cecil, and pulmonary vascularity are within normallimits. The lungs are well-inflated and clear. The visualized bones areunremarkable.Impression: Normal examination.Electronically Signed By: Nathan Herrera M.D., 04/10/2017 12:25 PMLegally authenticated by MADELAINE BRUNO 2017-04-10 12:25:44
[2022-12-24] MEDS ORDERED: ASPIRIN 81 MG CHEWABLE TABLET ONE (16:12)
--- NOTE | 2022-12-24 18:11 | RAD REPORT ---
EX[facility] DESCRIPTION[facility]24/2022 5:31 pm CLINICAL HISTORY: CHEST PAIN COMPARISON: Chest Pa And Lat (2 Views) dated 06/18/2022 TECHNIQUE: Portable AP view of the chest. FINDINGS: The lungs are clear. No pneumothorax or effusion. The cardiomediastinal contours are unrem arkable. IMPRESSION: No acute cardiopulmonary process.
--- NOTE | 2022-12-24 18:17 | ER ---
Nurse's Notes [facility] Name: Britt Wilson Age: 62 yrs Sex: Female : 1960 Arrival Date: 12/24/2022 Time: 14:55 Bed 19 Private MD: Diagnosis: Neck pain;Other malaise Presentation: 12/24 15:00 Chief complaint: Patient states: Reports left sided neck, shoulder and arm pain sg5 starting 4 days ago, along with upper abdominal pain, chest pain and lightheaded. Pain 6/10. Coronavirus screen: Vaccine status: Patient reports receiving the 2nd dose of the covid vaccine. Ebola Screen: No symptoms or risks identified at this time. Initial Sepsis Screen: Does the patient meet any 2 criteria? No. Patient's initial sepsis screen is negative. Does the patient have a suspected source of infection? No. Patient's initial sepsis screen is negative. Risk Assessment: Do you want to hurt yourself or someone else? Patient reports no desire to harm self or others. Onset of symptoms was December 20, 2022. 15:00 Method Of Arrival: Ambulatory sg5 15:00 Acuity: KEITH 3 sg5 Triage Assessment: 15:19 General: Appears comfortable, Behavior is calm, cooperative, appropriate for age. Pain: sg5 Complains of pain in left arm, shoulder, neck, chest. Cardiovascular: Reports chest pain, Heart tones S1 S2 present. Respiratory: No deficits noted. Airway is patent. Historical: - Allergies: 15:19 Cipro PO; sg5 15:19 PENICILLINS; sg5 - Home Meds: 15:19 carvedilol oral [Active]; amlodipine oral [Active]; Singulair Oral [Active]; sg5 atorvastatin oral [Active]; Dexamethasone Oral [Active]; - PMHx: 15:19 Hypertensive disorder; Asthma; high cholesterol; sg5 - PSHx: 15:19 hysterectomy; Tonsillectomy; sg5 - Immunization history:: Adult Immunizations up to date, Client reports receiving the 2nd dose of the Covid vaccine, Last tetanus immunization: unknown, Flu vaccine is not up to date. - Social history:: Smoking status: Patient denies any tobacco usage or history of. Screenin:03 [facility] ED Fall Risk Assessment (Adult) History of falling in the last 3 months, db including since admission No falls in past 3 months (0 pts) Confusion or Disorientation No (0 pts) Intoxicated or Sedated No (0 pts) Impaired Gait No (0 pts) Mobility Assist Device Used No (0 pt) Altered Elimination No (0 pt) Score/Fall Risk Level 0 - 2 = Low Risk Oriented to surroundings, Maintained a safe environment. Abuse screen: Denies threats or abuse. Denies injuries from another. Nutritional screening: No deficits noted. Tuberculosis screening: No symptoms or risk factors identified. Assessment: 15:15 Reassessment: Patient appears in no apparent distress at this time. Patient and/or db family updated on plan of care and expected duration. Pain level reassessed. Patient is alert, oriented x 3, equal unlabored respirations, skin warm/dry/pink. complains of chest pain radiating into left arm. General: Appears in no apparent distress. comfortable, Behavior is calm, cooperative. Pain: Complains of pain in chest Pain radiates to left arm. Neuro: Level of Consciousness is awake, alert, obeys commands, Oriented to person, place, time, Moves all extremities. Speech is normal. Cardiovascular: Reports chest pain. Respiratory: Airway is patent Respiratory effort is even, unlabored, Respiratory pattern is regular, agonal. GI: No deficits noted. No signs and/or symptoms were reported involving the gastrointestinal system. 16:33 Reassessment: Patient appears in no apparent distress at this time. Patient and/or db family updated on plan of care and expected duration. Pain level reassessed. Patient is alert, oriented x 3, equal unlabored respirations, skin warm/dry/pink. 16:58 Reassessment: Patient appears in no apparent distress at this time. Patient and/or db family updated on plan of care and expected duration. Pain level reassessed. Patient is alert, oriented x 3, equal unlabored respirations, skin warm/dry/pink. 17:20 Reassessment: Patient appears in no apparent distress at this time. Patient and/or db family updated on plan of care and expected duration. Pain level reassessed. Patient is alert, oriented x 3, equal unlabored respirations, skin warm/dry/pink. patient ambulatory to restroom. 18:38 Reassessment: Patient appears in no apparent distress at this time. Patient and/or db family updated on plan of care and expected duration. Pain level reassessed. Patient is alert, oriented x 3, equal unlabored respirations, skin warm/dry/pink. Vital Signs: 15:00 BP 157 / 94; Pulse 71; Resp 18; Temp 98.4; Pulse Ox 100% on R/A; Weight 73.94 kg; sg5 Height 5 ft. 0 in. (152.40 cm); Pain 6/10; 15:15 BP 149 / 77; Pulse 75; Resp 16; Pulse Ox 100% on R/A; db 16:04 BP 165 / 90; Pulse 78; Resp 16; Pulse Ox 100% on R/A; db 17:00 BP 144 / 70; Pulse 70; Resp 16; Pulse Ox 100% on R/A; db 18:00 BP 151 / 81; Pulse 69; Resp 18; Pulse Ox 100% on R/A; db 15:00 Body Mass Index 31.83 (73.94 kg, 152.40 cm) sg5 Vitals: 15:15 Cardiac Rhythm Assessment Regular Sinus rhythm. db ED Course: 14:55 Patient arrived in ED. am2 15:00 Giselle Alanis FNP is PHCP. jh7 15:00 Clovis Gunn DO is Attending Physician. jh7 15:06 Rosita Rolon, RN is Primary Nurse. db 15:19 Triage completed. sg5 15:19 Arm band placed on right wrist. sg5 15:48 Inserted saline lock: 22 gauge in right wrist, using aseptic technique. iw 17:20 Patient has correct armband on for positive identification. Placed in gown. Bed in low db position. Call light in reach. Side rails up X2. Client placed on continuous cardiac and pulse oximetry monitoring. NIBP monitoring applied. Warm blanket given. 18:39 No provider procedures requiring assistance completed. IV discontinued, intact, db bleeding controlled, No redness/swelling at site. 18:44 RAD In Process Unspecified. EDMS Administered Medications: 16:13 Drug: Aspirin Chewable Tablet 324 mg Route: PO; db 16:58 Follow up: Response: No adverse reaction db Medication: 18:40 VIS not applicable for this client. db Outcome: 18:16 Discharge ordered by . [facility] 18:39 Discharged to home ambulatory, with family. db 18:39 Condition: stable 18:39 Discharge instructions given to patient, family, Instructed on discharge instructions, follow up and referral plans. 18:40 Patient left the ED. db Signatures: Dispatcher [employer] Jojo Lugo, RN RN [place] Conn [facility] Giselle Alanis FNP FNP 7 Rosita Rolon RN RN Milagro Villanueva RN RN sg5 Corrections: (The following items were deleted from the chart) 16:34 16:32 Reassessment: Patient appears in no apparent distress at this time. Patient db and/or family updated on plan of care and expected duration. Pain level reassessed. Patient is alert, oriented x 3, equal unlabored respirations, skin warm/dry/pink. patient assisted on bedpan. db
--- NOTE | 2022-12-24 18:17 | EDPHYS ---
Physician Documentation [facility] Name: Britt Wilson Age: 62 yrs Sex: Female : 1960 Arrival Date: 12/24/2022 Time: 14:55 Bed 19 Private MD: ED Physician Clovis Gunn HPI: 12/24 15:20 This 62 yrs old Black Female presents to ER via Ambulatory with complaints of left side jh7 pain, Dizziness. 15:20 Patient complains of body aches, left-sided neck pain, and left shoulder pain starting jh7 4 days ago. Also reports that she has been extra stressed at home lately and is also felt slightly lightheaded and fatigued. Denies fever, chest pain, and shortness of breath.. Historical: - Allergies: 15:19 Cipro PO; sg5 15:19 PENICILLINS; sg5 - Home Meds: 15:19 carvedilol oral [Active]; amlodipine oral [Active]; Singulair Oral [Active]; sg5 atorvastatin oral [Active]; Dexamethasone Oral [Active]; - PMHx: 15:19 Hypertensive disorder; Asthma; high cholesterol; sg5 - PSHx: 15:19 hysterectomy; Tonsillectomy; sg5 - Immunization history:: Adult Immunizations up to date, Client reports receiving the 2nd dose of the Covid vaccine, Last tetanus immunization: unknown, Flu vaccine is not up to date. - Social history:: Smoking status: Patient denies any tobacco usage or history of. ROS: 15:20 Eyes: Negative for injury, pain, redness, and discharge, ENT: Negative for injury, jh7 pain, and discharge, Neck: Negative for injury, pain, and swelling, Cardiovascular: Negative for chest pain, palpitations, and edema, Respiratory: Negative for shortness of breath, cough, wheezing, and pleuritic chest pain, Abdomen/GI: Negative for abdominal pain, nausea, vomiting, diarrhea, and constipation, Back: Negative for injury and pain, Skin: Negative for injury, rash, and discoloration, Neuro: Negative for headache, weakness, numbness, tingling, and seizure. 15:20 Constitutional: Positive for malaise. 15:20 MS/extremity: Positive for pain, of the Left shoulder and left neck. 15:20 All other systems are negative. Exam: 15:20 Constitutional: This is a well developed, well nourished patient who is awake, alert, jh7 and in no acute distress. Head/Face: Normocephalic, atraumatic. Eyes: Pupils equal round and reactive to light, extra-ocular motions intact. Lids and lashes normal. Conjunctiva and sclera are non-icteric and not injected. Cornea within normal limits. Periorbital areas with no swelling, redness, or edema. ENT: Nares patent. No nasal discharge, no septal abnormalities noted. Tympanic membranes are normal and external auditory canals are clear. Oropharynx with no redness, swelling, or masses, exudates, or evidence of obstruction, uvula midline. Mucous membranes moist. 15:20 Cardiovascular: Regular rate and rhythm with a normal S1 and S2. No gallops, murmurs, or rubs. Normal PMI, no JVD. No pulse deficits. Respiratory: Lungs have equal breath sounds bilaterally, clear to auscultation and percussion. No rales, rhonchi or wheezes noted. No increased work of breathing, no retractions or nasal flaring. Abdomen/GI: Soft, non-tender, with normal bowel sounds. No distension or tympany. No guarding or rebound. No evidence of tenderness throughout. Back: No spinal tenderness. No costovertebral tenderness. Full range of motion. 15:20 Neuro: Awake and alert, GCS 15, oriented to person, place, time, and situation. Cranial nerves II-XII grossly intact. Motor strength 5/5 in all extremities. Sensory grossly intact. Cerebellar exam normal. Normal gait. 15:20 Neck: External neck: is normal, Trachea: is midline with no obvious abnormalities, ROM/movement: is normal. 15:20 Musculoskeletal/extremity: ROM: intact in all extremities, Circulation is intact in all extremities. Sensation intact. Reports left shoulder pain at rest but worsening with abduction beyond 90 degrees.. Vital Signs: 15:00 BP 157 / 94; Pulse 71; Resp 18; Temp 98.4; Pulse Ox 100% on R/A; Weight 73.94 kg; sg5 Height 5 ft. 0 in. (152.40 cm); Pain 6/10; 15:15 BP 149 / 77; Pulse 75; Resp 16; Pulse Ox 100% on R/A; db 16:04 BP 165 / 90; Pulse 78; Resp 16; Pulse Ox 100% on R/A; db 17:00 BP 144 / 70; Pulse 70; Resp 16; Pulse Ox 100% on R/A; db 18:00 BP 151 / 81; Pulse 69; Resp 18; Pulse Ox 100% on R/A; db 15:00 Body Mass Index 31.83 (73.94 kg, 152.40 cm) sg5 MDM: 15:00 Patient medically screened. [facility] 18:20 Differential diagnosis: viral Infection, bacterial infection, pneumonia Acute [place], 7 trapezius muscle spasm, cervical strain. Data reviewed: vital signs, nurses notes, lab test result(s), EKG, radiologic studies, plain films. I considered the following discharge prescriptions or medication management in the emergency department Medications were administered in the Emergency Department. See MAR. Care significantly affected by the following chronic conditions: Hypertension. Counseling: I had a detailed discussion with the patient and/or guardian regarding: the historical points, exam findings, and any diagnostic results supporting the discharge/admit diagnosis, to return to the emergency department if symptoms worsen or persist or if there are any questions or concerns that arise at home. ED course: Patient reports that she had applied a pain patch on her neck last night which provided some relief. Agreed that she needs to follow-up with her PCP. Discussed unremarkable labs, EKG, and imaging. She remained hemodynamically stable throughout her ER visit. She develops any new concerning symptoms, she may return to the ER for further eval.. 12/24 15:12 Order name: Basic Metabolic Panel; Complete Time: 15:48 [facility] 12/24 15:12 Order name: CBC with Diff; Complete Time: 15:48 [facility] 12/24 15:12 Order name: LFT's; Complete Time: 15:48 [facility] 12/24 15:12 Order name: Magnesium; Complete Time: 15:48 [facility] 12/24 15:12 Order name: NT PRO-BNP; Complete Time: 15:48 [facility] 12/24 15:12 Order name: PT-INR; Complete Time: 15:48 [facility] 12/24 15:12 Order name: Troponin HS; Complete Time: 15:48 [facility] 12/24 15:12 Order name: XRAY Chest (1 view) [facility] 12/24 15:12 Order name: EKG; Complete Time: 15:13 [facility] 12/24 15:12 Order name: Cardiac monitoring; Complete Time: 15:56 [facility] 12/24 15:12 Order name: EKG - Nurse/Tech; Complete Time: 15:33 [facility] 12/24 15:12 Order name: IV Saline Lock; Complete Time: 16:03 [facility] 12/24 18:11 Order name: RAD EDID 12/24 15:12 Order name: Labs collected and sent; Complete Time: 15:56 [facility] 12/24 15:12 Order name: O2 Per Protocol; Complete Time: 15:56 [facility] 12/24 15:12 Order name: O2 Sat Monitoring; Complete Time: 15:56 EC:14 Rate is 70 beats/min. Rhythm is regular. QRS [place] is Normal. [place] interval is normal at [facility] 150 msec. QRS interval is normal at 74 msec. QT interval is normal at 372 msec. No Q waves. T waves are Normal. No ST changes noted. Clinical impression: Normal ECG. Administered Medications: 16:13 Drug: Aspirin Chewable Tablet 324 mg Route: PO; db 16:58 Follow up: Response: No adverse reaction db Disposition: 16:00 Co-signature as Attending Physician, Clovis Gunn DO I was immediately available on-site ms3 in the Emergency Department for consultation in the care of the patient. Disposition Summary: 12/24/22 18:16 Discharge Ordered Location: Home [facility] Problem: new [facility] Symptoms: are unchanged [facility] Condition: Stable [facility] Diagnosis - Neck pain 7 - Other malaise [facility] Followup: [facility] - With: Private Physician - When: 2 - 3 days - Reason: Recheck today's complaints Discharge Instructions: - Discharge Summary Sheet [facility] - Muscle Cramps and Spasms [facility] - Shoulder Pain [facility] - Managing Stress, Adult [facility] Forms: - Medication Reconciliation Form [facility] - Thank You Letter [facility] Signatures: Dispatcher [employer] Clovis Moran DO DO ms3 Giselle Alanis FNP FNP 7 Rosita Rolon, RN RN db Milagro Gauthier RN RN sg5
--- NOTE | 2022-12-24 18:47 | EKG ---
Test Date: 2022-12-24 Test Time: 15:14:29 Educational Therapy Teacher: EVA MEASUREMENT RESULTS: Intervals: Rate: 70 RI: 150 QRSD: 74 QT: 372 QTc: 401 [place]: P: 70 RI: 150 QRS: 4 T: 31 INTERPRETIVE STATEMENTS: Normal sinus rhythm Normal ECG No previous ECG available for comparison Electronically Signed On 12-24-22 18:42:31 TEACHER VOCAL by Dean Durham
[2022-12-24 18:54] VITALS: TEMP 98.4; O2SAT 100
[2022-12-24 19:08] VITALS: BP 151/81
== END 2022-12-24 18:40 | disposition home or self-care (01) ==
LOC: ER 14:51
DX: M54.2 Cervicalgia (principal)
CPT/HCPCS: 36415; 71045; 80048; 80076; 83735; 83880; 84484; 85025; 85610; 93005